=== PATIENT | female | born 1955 | race Caucasian/White ===

== ENCOUNTER → 2018-06-13 | Outpatient (CLI) | payer OTHER, SELFPAY ==
--- NOTE | 2018-06-13 | DI.MRI.S_ITS ---
PROCEDURE: MR CERVICAL SPINE WO CON INDICATIONS: Cervicalgia TECHNIQUE: Noncontrast sagittal T1 spin echo and T2 fast spin echo, sagittal STIR, foraminal oblique sagittal T2 fast spin echo, and axial gradient echo or T2 fast spin echo through the cervical spine. COMPARISON: [facility], MR, C-SPINE WITHOUT CONTRAST, 11/04/2010, 15:08. [facility], CR, CERVICAL SPINE 2 OR 3 VIEWS, 10/14/2009, 14:18. [facility], CR, CERVICAL SPINE 4 VIEWS, 10/13/2009, 13:30. [facility], MR, C-SPINE WITHOUT CONTRAST, 11/05/2015, 10:43. FINDINGS: Image quality: Excellent. Alignment and Curvature: There is loss of normal cervical lordosis. There is minimal retrolisthesis of C5 over C6 alignment. Bone Marrow: Marrow demonstrates normal overall signal. Spinal Cord: Visualized spinal cord has normal size and signal. No cerebellar tonsillar herniation. Paraspinous Soft Tissues: No paravertebral masses. Prevertebral soft tissues are normal in thickness. Enlarged thyroid gland. C2-C3: Preserved disc height and mild disc desiccation. There is broad posterior disc bulge. The central canal is mildly narrowed, but unchanged. No foraminal stenosis. C3-C4: Preserved disc height and mild disc desiccation. There is broad posterior disc bulge and mild uncovertebral hypertrophy. Mild right facet arthropathy. The central canal is mildly narrowed. Mild bilateral foraminal stenosis. No significant change from last exam. C4-C5: [id number]-nl-[id number] loss of disc height and disc desiccation. There is mild posterior disc bulge and mild uncovertebral hypertrophy. Mild to moderate bilateral facet arthropathy. The central canal is patent. No significant foraminal stenosis. C5-C6: Ulyc-hl-kjxhyzxl loss of disc height and disc desiccation. There is broad posterior disc bulge and uncovertebral hypertrophy. The central canal is patent. Mild left foraminal stenosis, unchanged. The right neuroforamen is patent. C6-C7: Mild loss of disc height and disc desiccation. There is broad posterior disc bulge and uncovertebral hypertrophy. The central canal is mildly narrowed, unchanged. No foraminal stenosis. C7-T1: Normal appearance. IMPRESSION: 1. Multilevel degenerative disc disease and facet arthropathy as described. 2. Mild central canal stenosis at C2-C3, C3-C4 and C6-C7. 3. Multilevel mild foraminal stenoeis as described. 4. Enlarged thyroid gland. Please correlate with thyroid function tests. If clinically indicated, thyroid ultrasound and helpful for followup. Dictated by: Mari Lugo M.D. on 06/13/2018 at 15:54 Approved by: Mari Lugo M.D. on 06/13/2018 at 16:04
== END ==
PROVIDERS: PCP Family Medicine Geriatric Medicine; Visit Provider Family Medicine Geriatric Medicine
DX: M50.31 Other cervical disc degeneration, high cervical region (principal); M48.02 Spinal stenosis, cervical region; M47.812 Spondylosis without myelopathy or radiculopathy, cervical region; E04.9 Nontoxic goiter, unspecified
CPT/HCPCS: 72141

== ENCOUNTER → 2020-01-09 11:30 | Outpatient (CLI) | payer MEDICARE, OTHER, SELFPAY ==
--- NOTE | 2020-01-09 11:33 | DI.RAD.S_ITS ---
PROCEDURE: XR CERVICAL SPINE 4V OR 5V INDICATIONS: neck pain with radiculopathy TECHNIQUE: 6 views of the cervical spine acquired. COMPARISON: None. FINDINGS: Bones: No fractures or dislocations to the T1 level. Straightening of the normal lordotic curvature. Multilevel degenerative endplate sclerosis and spurring. Diffuse facet arthropathy. Mild left and moderate narrowing of the C4-C5 and C5-C6 disc spaces. On the right, no definite bony foraminal stenosis. On the left, mild narrowing of the C4-C5, C5-C6 and C6-C7 neuroforamen Soft tissues: No prevertebral soft tissue swelling. IMPRESSION: Lower left cervical bony foraminal stenoses from C4-C7. Multilevel cervical spondylosis most pronounced at the C4-C5 C5-C6. Her graft diffuse facet arthropathy Straightening of the normal lordotic curvature. Dictated by: Dejuan Delatorre M.D. on 01/09/2020 at 16:56 Approved by: Dejuan Delatorre M.D. on 01/09/2020 at 16:59
== END ==
PROVIDERS: PCP Physician Assistant Medical; Referring Provider Physical Medicine & Rehabilitation; Visit Provider Physical Medicine & Rehabilitation
DX: M54.2 Cervicalgia (principal); M47.22 Other spondylosis with radiculopathy, cervical region; M48.02 Spinal stenosis, cervical region
CPT/HCPCS: 72050

== ENCOUNTER → 2020-07-14 11:17 | Outpatient (CLI) | payer MEDICARE, OTHER, SELFPAY ==
[2020-07-15 03:47] LABS: COVID19 Sendout Not Detected (Not Detect)
== END ==
PROVIDERS: PCP Physician Assistant Medical; Visit Provider Physician Assistant
DX: Z11.59 Encounter for screening for other viral diseases (principal)
CPT/HCPCS: 87635

== ENCOUNTER 2020-07-17 07:55 | Outpatient (CLI) | payer MEDICARE, OTHER, SELFPAY ==
[2020-07-17] VITALS (8 sets, daily range): BP systolic 122–144; BP diastolic 77–91; PULSE 67–83; RESP 8–16; TEMP 36.4; O2SAT 94–100
--- NOTE | 2020-07-17 08:01 | DI.RAD.S_ITS ---
PROCEDURE: PAIN C/T FACET INJ/BLK 1ST L INDICATIONS: SPONDYLOSIS COMPARISON: [facility], MR, MR CERVICAL SPINE WO CON, 06/13/2018, 10:45. FINDINGS: Fluoroscopic spot filming was performed to verify placement of spinal needles at the C4-C5, C5-C6 and C6-C7 level(s), as labeled on the films. Appropriate location(s) of the needle tip(s) was confirmed by injection of iodinated contrast. Dictated by: Dejuan Delatorre M.D. on 07/17/2020 at 10:48 Approved by: Dejuan Delatorre M.D. on 07/17/2020 at 10:50
[2020-07-17] MEDS: MIDAZOLAM 5 MG/5 ML VIAL IV (09:15)
[2020-07-17] MEDS: fentaNYL 100 MCG/2 ML INJ 50 MCG IV (09:15)
[2020-07-17] MEDS: DEXAMETHASONE 10 MG/ML VIAL 30 MG INJ (09:20)
[2020-07-17] MEDS: IOPAMIDOL 15 ML VIAL 3 ML INJ (09:20)
[2020-07-17] MEDS: BUPIVACAINE 0.5% (PF) VIAL 2 ML INJ (09:21)
--- NOTE | 2020-07-17 09:34 | P.PCN_ITS ---
Date/Time/Diagnoses Date of procedure: 07/17/20 Time of procedure: 09:34 Pre-procedure diagnosis: 1. FACET ARTHROPATHY 2. AXIAL NECK PAIN Post-procedure diagnosis: same Procedure Notes Procedure: 1. FLUOROSCOPICALLY GUIDED, CONTRAST-CONTROLLED RIGHT C4/5, C5/6 AND C6/7 FACET JOINT INJECTIONS WITH CONSCIOUS SEDATION. Indications: Elijah is referred by MING Leal for treatment of Axial Neck Pain Physician: Rigoberto Lott Total Fluoroscopy time (seconds): 22 Total sedation minutes: 22 Complications: none Procedure in detail & Post-procedure care: DESCRIPTION OF PROCEDURE Fluoroscopically guided, contrast-controlled right C4/5, C5/6 and C6/7 facet joint injections with conscious sedation. Following review of allergy and review of potential side effects and complications, including, but not necessarily limited to, infection, allergic reaction, local tissue breakdown, stroke, temporary or permanent nerve injury and paralysis, the patient indicated that the patient understood and agreed to p roceed. An informed consent document was signed by the patient, witnessed by a nurse, and placed in the patient's chart. Additionally, other treatment options including medications, modalities, and physical therapy were reviewed with the patient. After review of previous anaesthesic history and IV conscious sedation the patient was deemed safe to proceed with today?s procedure with IV conscious sedation as ASA class II designation. Safety time-out was performed to confirm patient ID, procedure to be performed and site of procedure. IV sedation was accomplished with a combination of 3mg of Versed and 50mcg of Fentanyl was administered by the RN after DO order, titrated to patient comfort during the course of the procedure while the patient remained responsive to all verbal commands In the prone position, following sterile prep and drape of the cervical spine region, the posterior aspect of the right C4/5, C5/6 and C6/7 facet joints were identified fluoroscopically. The skin was anesthetized via a 25-gauge 1.5-inch needle with 1% lidocaine solution into the corresponding facet joints. At this point, a 25-gauge 2.5-inch spinal needle was atraumatically introduced and advanced under fluoroscopic guidance into the corresponding facet joints. Following negative aspiration, injections of approximately 0.2-cc of Isovue 200 confirmed interarticular placement without vascular uptake. At this point, a total of 1cc including 0.5 c or 5 mg of dexamethasone combined with 0.5cc of 1% lidocaine solution was injected without complication into each of the corresponding facet joints. The procedure tolerated the procedure well without signs or symptoms of complications prior to transfer to the recovery area continued monitoring without incident. The patient was then transferred to the recovery area where they were observed for an appropriate period of time after the injection. The patient reported a VAS score of 7 prior to the procedure and a post- procedure VAS of 0. POST OP INSTRUCTIONS They were provided a Pain Log to continue to record their response to the target-specific procedure prior to their follow-up visit with their referring physician. Additionally, specific post-injection care instructions and a contact number to our office were provided if concerns arise regarding possible complications associated with the procedure are suspected.
== END 2020-07-17 10:05 | disposition home or self-care (01) ==
PROVIDERS: PCP Physician Assistant Medical; Referring Provider Physical Medicine & Rehabilitation; Visit Provider Physical Medicine & Rehabilitation
DX: M47.812 Spondylosis without myelopathy or radiculopathy, cervical region (principal); M54.2 Cervicalgia
CPT/HCPCS: 64490; 64491; 64492; 99152; J1100; J2250; J3010

== ENCOUNTER → 2020-09-13 14:52 | Outpatient (CLI) | payer MEDICARE, OTHER, SELFPAY ==
--- NOTE | 2020-09-13 14:54 | DI.MRI.S_ITS ---
PROCEDURE: MR CERVICAL SPINE WO CON INDICATIONS: cervical stenosis TECHNIQUE: Noncontrast sagittal T1 spin echo and T2 fast spin echo, sagittal STIR, foraminal oblique sagittal T2 fast spin echo, and axial gradient echo or T2 fast spin echo through the cervical spine. COMPARISON: [facility], CR, XR CERVICAL SPINE 4V OR 5V, 01/09/2020, 11:29. [facility], MR, C-SPINE WITHOUT CONTRAST, 11/05/2015, 10:43. [facility], MR, MR CERVICAL SPINE WO CON, 06/13/2018, 10:45. FINDINGS: Image quality: Excellent. Alignment and Curvature: There is reversal of the normal cervical lordosis, with the apex seen at the C5 level. There is minimal anterolisthesis at C4-C5. There is minimal retrolisthesis seen at C5-C6. Bone Marrow: Marrow demonstrates normal overall signal. Spinal Cord: Visualized spinal cord has normal size and signal. No cerebellar tonsillar herniation. Paraspinous Soft Tissues: No paravertebral masses. Prevertebral soft tissues are normal in thickness. C2-C3: The disc height is well-preserved. Loss of disc signal is seen at this level. A mild degree of generalized disc osteophyte complex is seen. There is a mild central disc protrusion seen. There is minimal right-sided and no significant left-sided neural foraminal narrowing seen. Minimal central canal narrowing is seen. When comparison is made with the prior examination, these findings are similar. C3-C4: Mild loss of disc height is seen. Loss of disc signal is seen. Moderate generalized disc osteophyte complex is seen. There is moderate right-sided and mild left-sided facet hypertrophy seen. There is moderate to severe right-sided and at least moderate left-sided neural foraminal narrowing seen. Mild to moderate central canal narrowing is seen, with minimal associated mass effect upon the ventral spinal cord. Mild progression compared to the prior. C4-C5: Moderate loss of disc height is seen. Loss of disc signal is seen. Mild to moderate disc osteophyte complex is seen. There is mild to moderate right-sided and moderate left-sided facet hypertrophy seen. There is mild right-sided and at least moderate left-sided neural foraminal narrowing seen. Mild central canal narrowing is seen. These imaging findings have progressed compared to the prior study. C5-C6: Moderate loss of disc height is seen. Loss of disc signal is seen. At least moderate disc osteophyte complex is seen, which is eccentric to the right, with a right lateral recess disc osteophyte protrusion. Moderate facet joint hypertrophy is seen. There is moderate to severe bilateral neural foraminal narrowing seen. Mild central canal narrowing is seen. These imaging findings have progressed compared to the prior study. C6-C7: Ohyz-bm-qjiaxgcf loss of disc height and disc signal can be seen. Mild to moderate disc osteophyte complex is seen. Moderate facet joint hypertrophy is seen. There is moderate to severe left-sided and at least moderate right-sided neural foraminal narrowing seen. Mild central canal narrowing is seen. These imaging findings have progressed compared to the prior study. C7-T1: The disc height is well-preserved. Loss of disc signal is seen at this level. A mild degree of generalized disc osteophyte complex is seen. Mild bilateral neural foraminal narrowing is seen. The central canal is widely patent. When comparison is made with the prior examination, these findings are similar. IMPRESSION: Multiple levels of cervical spine degenerative change are seen, which are overall most prominent at C5-C6. The degenerative changes have progressed at several levels compared to 2018. Dictated by: Abraham Martinez M.D. on 09/15/2020 at 10:49 Approved by: Abraham Martinez M.D. on 09/15/2020 at 11:01
== END ==
PROVIDERS: PCP Physician Assistant Medical; Referring Provider Physical Medicine & Rehabilitation; Visit Provider Physical Medicine & Rehabilitation
DX: M47.812 Spondylosis without myelopathy or radiculopathy, cervical region (principal); M48.02 Spinal stenosis, cervical region
CPT/HCPCS: 72141

== ENCOUNTER 2020-10-02 10:06 | Outpatient (CLI) | payer MEDICARE, OTHER, SELFPAY ==
[2020-10-02] VITALS (8 sets, daily range): BP systolic 142–173; BP diastolic 72–90; PULSE 78–93; RESP 11–16; TEMP 36.6; O2SAT 97–100
--- NOTE | 2020-10-02 10:09 | DI.RAD.S_ITS ---
PROCEDURE: PAIN C/T FACET INJ/BLK 1ST L INDICATIONS: SPINAL STENOSIS COMPARISON: [facility], MR, MR CERVICAL SPINE WO CON, 06/13/2018, 10:45. [facility], XA, PAIN C/T FACET INJ/BLK 1ST L, 07/17/2020, 9:27. [facility], CR, XR CERVICAL SPINE 4V OR 5V, 01/09/2020, 11:29. FINDINGS: Fluoroscopic spot filming was performed to verify placement of spinal needles at the C3-C4 and C4-C5 level(s), as labeled on the films. Appropriate location(s) of the needle tip(s) was confirmed by injection of iodinated contrast. IMPRESSION: Fluoroscopy for pain management. Dictated by: Mari Lugo M.D. on 10/02/2020 at 13:09 Approved by: Mari Lugo M.D. on 10/02/2020 at 13:12
[2020-10-02] MEDS: fentaNYL 100 MCG/2 ML INJ 50 MCG IV (12:10)
[2020-10-02] MEDS: MIDAZOLAM 5 MG/5 ML VIAL IV (12:15)
--- NOTE | 2020-10-02 12:30 | P.PCN_ITS ---
Date/Time/Diagnoses Date of procedure: 10/02/20 Time of procedure: 12:30 Pre-procedure diagnosis: 1. FACET ARTHROPATHY 2. AXIAL NECK PAIN Post-procedure diagnosis: same Procedure Notes Procedure: 1. FLUOROSCOPICALLY GUIDED, CONTRAST-CONTROLLED RIGHT C3/4, C4/5 FACET JOINT INJECTIONS WITH CONSCIOUS SEDATION. Indications: Elijah is referred by MING Leal for treatment of Axial Neck Pain Physician: Rigoberto Lott Total Fluoroscopy time (seconds): 10 Total sedation minutes: 15 Complications: none Procedure in detail & Post-procedure care: DESCRIPTION OF PROCEDURE Fluoroscopically guided, contrast-controlled right C3/4 and C4/5 facet joint injections with conscious sedation. Following review of allergy and review of potential side effects and complications, including, but not necessarily limited to, infection, allergic reaction, local tissue breakdown, stroke, temporary or permanent nerve injury and paralysis, the patient indicated that the patient understood and agreed to proceed. An informed consent document was signed by the patient, witnessed by a nurse, and placed in the patient's chart. Additionally, other treatment options including medications, modalities, and physical therapy were reviewed with the patient. After review of previous anaesthesic history and IV conscious sedation the patient was deemed safe to proceed with today?s procedure with IV conscious sedation as ASA class II designation. Safety time-out was performed to confirm patient ID, procedure to be performed and site of procedure. IV sedation was accomplished with a combination of 4mg of Versed and 50mcg of Fentanyl was administered by the RN after DO order, titrated to patient comfort during the course of the procedure while the patient remained responsive to all verbal commands In the prone position, following sterile prep and drape of the cervical spine region, the posterior aspect of the right C3/4 and C4/5 facet joints were identified fluoroscopically. The skin was anesthetized via a 25-gauge 1.5-inch needle with 1% lidocaine solution into the corresponding facet joints. At this point, a 25-gauge 2.5-inch spinal needle was atraumatically introduced and advanced under fluoroscopic guidance into the corresponding facet joints. Following negative aspiration, injections of approximately 0.2-cc of Isovue 200 confirmed interarticular placement without vascular uptake. At this point, a total of 1cc including 0.5 cc or 5mg of dexamethasone combined with 0.5cc of 1% lidocaine solution was injected without complication into each of the corresponding facet joints. The procedure tolerated the procedure well without signs or symptoms of complications prior to transfer to the recovery area continued monitoring without incident. The patient was then transferred to the recovery area where they were observed for an appropriate period of time after the injection. The patient reported a VAS score of 7 prior to the procedure and a post- procedure VAS of 0. POST OP INSTRUCTIONS They were provided a Pain Log to continue to record their response to the target-specific procedure prior to their follow-up visit with their referring physician. Additionally, specific post-injection care instructions and a contact number to our office were provided if concerns arise regarding possible complications associated with the procedure are suspected.
[2020-10-02] MEDS: BUPIVACAINE 0.5% (PF) VIAL 2 ML INJ (12:47)
[2020-10-02] MEDS: DEXAMETHASONE 10 MG/ML VIAL 30 MG INJ (12:48)
[2020-10-02] MEDS: IOPAMIDOL 15 ML VIAL 3 ML INJ (12:48)
== END 2020-10-02 12:45 | disposition home or self-care (01) ==
PROVIDERS: PCP Physician Assistant Medical; Referring Provider Physical Medicine & Rehabilitation; Visit Provider Physical Medicine & Rehabilitation
DX: M47.812 Spondylosis without myelopathy or radiculopathy, cervical region (principal); M54.2 Cervicalgia
CPT/HCPCS: 64490; 64491; 99152; J1100; J2250; J3010

== ENCOUNTER 2021-01-29 10:43 | Outpatient (CLI) | payer MEDICARE, OTHER, SELFPAY ==
[2021-01-29] VITALS (8 sets, daily range): BP systolic 131–157; BP diastolic 65–95; PULSE 70–85; RESP 10–19; TEMP 37.1; O2SAT 95–100
--- NOTE | 2021-01-29 10:45 | DI.RAD.S_ITS ---
PROCEDURE: PAIN C/T FACET INJ/BLK 1ST L INDICATIONS: SPINAL STENOSIS COMPARISON: [facility], XA, PAIN C/T FACET INJ/BLK 1ST L, 10/02/2020, 12:14. [facility], XA, PAIN C/T FACET INJ/BLK 1ST L, 07/17/2020, 9:27. FINDINGS: Fluoroscopic spot filming was performed to verify placement of spinal needles at the C3-4 and C4-5 right-sided level(s), as labeled on the films. Appropriate location(s) of the needle tip(s) was confirmed by injection of iodinated contrast. IMPRESSION: Successful 2 level facet joint injection needle tip localization. Dictated by: Anil Lyons M.D. on 01/29/2021 at 12:24 Approved by: Anil Lyons M.D. on 01/29/2021 at 12:24
[2021-01-29] MEDS: fentaNYL 100 MCG/2 ML INJ 50 MCG IV (11:21)
[2021-01-29] MEDS: MIDAZOLAM 5 MG/5 ML VIAL IV (11:21)
[2021-01-29] MEDS: DEXAMETHASONE 10 MG/ML VIAL 20 MG INJ (11:24)
[2021-01-29] MEDS: IOPAMIDOL 15 ML VIAL 3 ML INJ (11:24)
[2021-01-29] MEDS: BUPIVACAINE 0.5% (PF) VIAL 2 ML INJ (11:24)
--- NOTE | 2021-01-29 11:37 | P.PCN_ITS ---
Date/Time/Diagnoses Date of procedure: 01/29/21 Time of procedure: 11:37 Pre-procedure diagnosis: 1. FACET ARTHROPATHY 2. AXIAL NECK PAIN Post-procedure diagnosis: same Procedure Notes Procedure: 1. FLUOROSCOPICALLY GUIDED, CONTRAST-CONTROLLED RIGHT C3/4, C4/5 FACET JOINT INJECTIONS WITH CONSCIOUS SEDATION. Indications: Elijah is referred by MING Leal for treatment of Axial Neck Pain Physician: Rigoberto Lott Total Fluoroscopy time (seconds): 13 Total sedation minutes: 10 Complications: none Procedure in detail & Post-procedure care: DESCRIPTION OF PROCEDURE Fluoroscopically guided, contrast-controlled right C3/4, C4/5 facet joint injections with conscious sedation. Following review of allergy and review of potential side effects and complications, including, but not necessarily limited to, infection, allergic reaction, local tissue breakdown, stroke, temporary or permanent nerve injury and paralysis, the patient indicated that the patient understood and agreed to proceed. An informed consent document was signed by the patient, witnessed by a nurse, and placed in the patient's chart. Additionally, other treatment options including medications, modalities, and physical therapy were reviewed with the patient. After review of previous anaesthesic history and IV conscious sedation the patient was deemed safe to proceed with today?s procedure with IV conscious sedation as ASA class II designation. Safety time-out was performed to confirm patient ID, procedure to be performed and site of procedure. IV sedation was accomplished with a combination of 2mg of Versed and 50mcg of Fentanyl was administered by the RN after DO order, titrated to patient comfort during the course of the procedure while the patient remained responsive to all verbal commands In the prone position, following sterile prep and drape of the cervical spine region, the posterior aspect of the right C3/4, C4/5 facet joints were identified fluoroscopically. The skin was anesthetized via a 25-gauge 1.5-inch needle with 1% lidocaine solution into the corresponding facet joints. At this point, a 22-gauge 2.5-inch spinal needle was atraumatically introduced and advanced under fluoroscopic guidance into the corresponding facet joints. Following negative aspiration, injections of approximately 0.2-cc of Isovue 200 confirmed interarticular placement without vascular uptake. At this point, a total of 1 cc including 0.5 cc or 5 mg of dexamethasone combined with 0.5 cc of 1% lidocaine solution was injected without complication into each of the corresponding facet joints. The procedure tolerated the procedure well without signs or symptoms of complications prior to transfer to the recovery area continued monitoring without incident. The patient was then transferred to the recovery area where they were observed for an appropriate period of time after the injection. The patient reported a VAS score of 7 prior to the procedure and a post- procedure VAS of 2. POST OP INSTRUCTIONS They were provided a Pain Log to continue to record their response to the target-specific procedure prior to their follow-up visit with their referring physician. Additionally, specific post-injection care instructions and a contact number to our office were provided if concerns arise regarding possible complications associated with the procedure are suspected.
== END 2021-01-29 11:50 | disposition home or self-care (01) ==
PROVIDERS: PCP Physician Assistant Medical; Referring Provider Physical Medicine & Rehabilitation; Visit Provider Physical Medicine & Rehabilitation
DX: M47.812 Spondylosis without myelopathy or radiculopathy, cervical region (principal); M54.2 Cervicalgia
CPT/HCPCS: 64490; 64491; 99152; J1100; J2250; J3010

== ENCOUNTER 2021-04-23 09:32 | Outpatient (CLI) | payer MEDICARE, OTHER, SELFPAY ==
[2021-04-23] VITALS (10 sets, daily range): BP systolic 126–158; BP diastolic 76–103; PULSE 67–94; RESP 12–25; TEMP 36.8; O2SAT 97–100
--- NOTE | 2021-04-23 09:34 | DI.RAD.S_ITS ---
PROCEDURE: PAIN C/T INTERLAMINAR INJECT INDICATIONS: SPINAL STENOSIS COMPARISON: None. FINDINGS: Fluoroscopic spot filming was performed to verify placement of spinal needles at the C6-C7 level(s), as labeled on the films. Appropriate location(s) of the needle tip(s) was confirmed by injection of iodinated contrast. Dictated by: Dejuan Delatorre M.D. on 04/23/2021 at 11:39 Approved by: Dejuan Delatorre M.D. on 04/23/2021 at 11:39
[2021-04-23] MEDS: fentaNYL 100 MCG/2 ML INJ 50 MCG IV (10:12)
[2021-04-23] MEDS: BUPIVACAINE 0.25% (PF) VIAL 2 ML INJ (10:18)
[2021-04-23] MEDS: IOPAMIDOL 15 ML VIAL 3 ML INJ (10:18)
[2021-04-23] MEDS: DEXAMETHASONE 10 MG/ML VIAL 30 MG INJ (10:18)
[2021-04-23] MEDS: MIDAZOLAM 5 MG/5 ML VIAL IV (10:19)
--- NOTE | 2021-04-23 10:32 | P.PCN_ITS ---
Date/Time/Diagnoses Date of procedure: 04/23/21 Time of procedure: 10:32 Pre-procedure diagnosis: 1. CERVICAL STENOSIS, 2. CERVICAL HNP WITH UPPER EXTREMITY RADICULAR FEATURES Post-procedure diagnosis: same Procedure Notes Procedure: 1. FLUORSCOPICALLY GUIDED CONTRAST CONTROLLED INTERLAMINAR EPIDURAL STEROID INJECTION - C6/7 TL NERY Indications: Elijah is referred by MING Leal for treatment of Cervical HNP with Upper Extremity Paresthesias. Physician: Rigoberto Lott Total Fluoroscopy time (seconds): 26 Total sedation minutes: 16 Complications: none Procedure in detail & Post-procedure care: FINDINGS Cervical Stenosis due to disc deterioration and nerve root irritation and nerve root irritation DESCRIPTION OF PROCEDURE Fluoroscopically guided, contrast-controlled C6/7 translaminar epidural steroid injection with conscious sedation. Following review of allergy and review of potential side effects and complications, including, but not necessarily limited to, infection, allergic reaction, local tissue breakdown, temporary as well as permanent nerve injury, stroke, paralysis, and possible , the patient indicated that patient understood and agreed to proceed. An informed consent document was signed by the patient, witnessed by a nurse, and placed in the patient's chart. Additionally, other treatment options including modalities, medications, and physical therapy were reviewed with the patient. After review of previous anaesthesic history and IV conscious sedation the patient was deemed safe to proceed with today?s procedure with IV conscious sed ation as ASA class II designation. Safety time-out was performed to confirm patient ID, procedure to be performed and site of procedure. IV sedation was accomplished with a combination of 4mg of Versed and 50mcg of Fentanyl administered by the RN after DO order, titrated to patient comfort during the course of the procedure while the patient remained responsive to all verbal commands. In the prone position, following sterile prep and drape of the cervical region, the C6/7 translaminar space was identified fluoroscopically. The skin was anesthetized via a 25-gauge 1.5-inch needle with 1% lidocaine solution. At this point, a 25-gauge, 2.5-inch short bevel spinal needle was atraumatically introduced and advanced under fluoroscopic guidance into epidural space at the C6/7 translaminar space. Depth was confirmed on lateral view. Radiological data, including multiple fluoroscopic views of the cervical spine, reveal a spinal needle at the C6/7 translaminar space. Lateral views then show placement of the needle in the epidural space. Subsequent views show contrast material flowing superiorly and inferiorly in the epidural space. DSA fluoroscopy with live contrast injection, once again, confirmed no vascular or intrathecal uptake. At this point, using loss of resistance technique with saline and air, the epidural space was entered. Following negative aspiration, injection of approximately 1.5 cc of Isovue-200 with live fluoroscopy in the AP view confirmed epidural flow in the epidural space without vascular or intrathecal uptake observed. Subsequently, a test dose of 1 cc of 1% lidocaine solution was injected and patient was observed for two minutes without signs or symptoms of complications, including abdominal pain, shortness of breath, bilateral upper or lower extremity weakness, nausea and vomiting, prior to steroid injection. At this point, 3cc or 30mg of dexamethasone was then injected without incident. The patient tolerated the procedure well without signs or symptoms of complications prior to being transferred to the recovery area for further monitoring, The patient was then transferred to the recovery area where they were observed for an appropriate period of time after the injection. The patient reported a VAS score of 6 prior to the procedure and a post-procedure VAS of 0. POST OP INSTRUCTIONS The patient was provided a Pain Log to continue to record their response to the target-specific procedure prior to follow-up visit with the referring provider. Additionally, specific post-injection care instructions and a contact number to our office were provided if concerns arise regarding possible complications associated with the procedure are suspected.
== END 2021-04-23 10:52 | disposition home or self-care (01) ==
PROVIDERS: PCP Physician Assistant Medical; Referring Provider Physical Medicine & Rehabilitation; Visit Provider Physical Medicine & Rehabilitation
DX: M48.02 Spinal stenosis, cervical region (principal); M50.123 Cervical disc disorder at C6-C7 level with radiculopathy
CPT/HCPCS: 62321; 99152; J1100; J2250; J3010

== ENCOUNTER 2022-02-04 08:47 | Outpatient (CLI) | payer MEDICARE, OTHER, SELFPAY ==
[2022-02-04] VITALS (9 sets, daily range): BP systolic 125–168; BP diastolic 58–89; PULSE 72–92; RESP 12–20; TEMP 36.8; O2SAT 95–100
--- NOTE | 2022-02-04 08:50 | DI.RAD.S_ITS ---
PROCEDURE: PAIN C/T INTERLAMINAR INJECT INDICATIONS: Cervical Radiculopathy COMPARISON: None. FINDINGS: Fluoroscopic spot filming was performed to verify placement of spinal needles at the C6-C7 interlaminar space level(s), as labeled on the films. Appropriate location(s) of the needle tip(s) was confirmed by injection of iodinated contrast. IMPRESSION: Access needle position in the C6-C7 interlaminar space for translaminar epidural steroid injection Dictated by: Tamika Osborn MD, PhD on 02/04/2022 at 11:21 Approved by: Tamika Osborn MD, PhD on 02/04/2022 at 11:22
--- NOTE | 2022-02-04 08:50 | DI.RAD.S_ITS ---
PROCEDURE: XR LUMBAR SPINE MIN 4V INDICATIONS: post lami syndrome TECHNIQUE: 5 views of the lumbar spine were acquired, including bilateral oblique views. COMPARISON: None. FINDINGS: Bones: 5 nonrib-bearing vertebrae are present. Non-rudimentary S1-S2 disc noted. Postsurgical changes compatible with left L5-S1 laminotomy. There is normal bony alignment. No vertebral body compression fractures. No suspicious bony lesions. Moderate L2-L3 and L5-S1 degenerative disc disease. Mild to moderate L3-L4 degenerative disc disease. Mild L1-L2 and L4-L5 degenerative disc disease. Moderate L2-L3, L3-L4, L4-L5 and L5-S1 facet arthropathy. Soft tissues: Overlying bowel gas pattern is normal. No suspicious soft tissue calcifications. Oblique images: No pars defects. IMPRESSION: 1. Multilevel degenerative disc disease. 2. Multilevel facet arthropathy. 3. No fracture. No acute osseous lesion. If symptoms and/or clinical suspicion for pathology persists, evaluation with MRI should be considered for further assessment. Dictated by: Tamika Osborn MD, PhD on 02/04/2022 at 10:49 Approved by: Tamika Osborn MD, PhD on 02/04/2022 at 10:51
[2022-02-04] MEDS: MIDAZOLAM 2 MG/2 ML VIAL 5 MG IV (09:25)
[2022-02-04] MEDS: fentaNYL 100 MCG/2 ML INJ (09:25)
[2022-02-04] MEDS: BUPIVACAINE 0.25% (PF) VIAL 2 ML INJ (09:27)
[2022-02-04] MEDS: IOPAMIDOL 15 ML VIAL 3 ML INJ (09:28)
[2022-02-04] MEDS: DEXAMETHASONE 10 MG/ML VIAL 30 MG INJ (09:28)
--- NOTE | 2022-02-04 09:45 | P.PCN_ITS ---
Date/Time/Diagnoses Date of procedure: 02/04/22 Time of procedure: 09:45 Pre-procedure diagnosis: 1. CERVICAL STENOSIS, 2. CERVICAL HNP WITH UPPER EXTREMITY RADICULAR FEATURES Post-procedure diagnosis: same Procedure Notes Procedure: 1. FLUORSCOPICALLY GUIDED CONTRAST CONTROLLED INTERLAMINAR EPIDURAL STEROID INJECTION - C6/7 TL NERY Indications: Elijah is referred by MING Leal for treatment of Cervical HNP with Upper Extremity Paresthesias. Physician: Rigoberto Lott Total Fluoroscopy time (seconds): 40 Total sedation minutes: 17 Complications: none Procedure in detail & Post-procedure care: FINDINGS Cervical Stenosis due to disc deterioration and nerve root irritation and nerve root irritation DESCRIPTION OF PROCEDURE Fluoroscopically guided, contrast-controlled C6/7 translaminar epidural steroid injection with conscious sedation. Following review of allergy and review of potential side effects and complications, including, but not necessarily limited to, infection, allergic reaction, local tissue breakdown, temporary as well as permanent nerve injury, stroke, paralysis, and possible , the patient indicated that patient understood and agreed to proceed. An informed consent document was signed by the patient, witnessed by a nurse, and placed in the patient's chart. Additionally, other treatment options including modalities, medications, and physical therapy were reviewed with the patient. After review of previous anaesthesic history and IV conscious sedation the patient was deemed safe to proceed with today?s procedure with IV conscious se dation as ASA class II designation. Safety time-out was performed to confirm patient ID, procedure to be performed and site of procedure. IV sedation was accomplished with a combination of 2mg of Versed and 100mcg of Fentanyl administered by the RN after DO order, titrated to patient comfort during the course of the procedure while the patient remained responsive to all verbal commands. In the prone position, following sterile prep and drape of the cervical region, the C6/7 translaminar space was identified fluoroscopically. The skin was anesthetized via a 25-gauge 1.5-inch needle with 1% lidocaine solution. At this point, a 25-gauge, 2.5-inch short bevel spinal needle was atraumatically introduced and advanced under fluoroscopic guidance into epidural space at the C6/7 translaminar space. Depth was confirmed on lateral view. Radiological data, including multiple fluoroscopic views of the cervical spine, reveal a spinal needle at the C6/7 translaminar space. Lateral views then show placement of the needle in the epidural space. Subsequent views show contrast material flowing superiorly and inferiorly in the epidural space. DSA fluoroscopy with live contrast injection, once again, confirmed no vascular or intrathecal uptake. At this point, using loss of resistance technique with saline and air, the epidural space was entered. Following negative aspiration, injection of approximately 1.5 cc of Isovue-200 with live fluoroscopy in the AP view confirmed epidural flow in the epidural space without vascular or intrathecal uptake observed. Subsequently, a test dose of 1 cc of 1% lidocaine solution was injected and patient was observed for two minutes without signs or symptoms of complications, including abdominal pain, shortness of breath, bilateral upper or lower extremity weakness, nausea and vomiting, prior to steroid injection. At this point, 3cc or 30mg of dexamethasone was then injected without incident. The patient tolerated the procedure well without signs or symptoms of complications prior to being transferred to the recovery area for further monitoring, The patient was then transferred to the recovery area where they were observed for an appropriate period of time after the injection. The patient reported a VAS score of 6 prior to the procedure and a post-procedure VAS of 0. POST OP INSTRUCTIONS The patient was provided a Pain Log to continue to record their response to the target-specific procedure prior to follow-up visit with the referring provider. Additionally, specific post-injection care instructions and a contact number to our office were provided if concerns arise regarding possible complications associated with the procedure are suspected.
== END 2022-02-04 10:06 | disposition home or self-care (01) ==
LOC: RAD 08:49
PROVIDERS: PCP Physician Assistant Medical; Referring Provider Physical Medicine & Rehabilitation; Visit Provider Physical Medicine & Rehabilitation
DX: M48.02 Spinal stenosis, cervical region (principal); M50.123 Cervical disc disorder at C6-C7 level with radiculopathy
CPT/HCPCS: 62321; 72110; 99152; J1100; J2250; J3010

== ENCOUNTER 2022-09-16 09:14 | Outpatient (CLI) | payer MEDICARE, OTHER, SELFPAY ==
[2022-09-16] VITALS (9 sets, daily range): BP systolic 136–169; BP diastolic 72–90; PULSE 73–94; RESP 12–20; TEMP 36.2; O2SAT 97–99
--- NOTE | 2022-09-16 09:16 | DI.RAD.S_ITS ---
PROCEDURE: PAIN C/T INTERLAMINAR INJECT INDICATIONS: SPINAL STENOSIS COMPARISON: [facility], , PAIN C/T INTERLAMINAR INJECT, 02/04/2022, 10:28. FINDINGS: Fluoroscopic spot filming was performed to verify placement of spinal needles at the overlying C6-7 level(s), as labeled on the films. Appropriate location(s) of the needle tip(s) was confirmed by injection of iodinated contrast. IMPRESSION: Needle placement as above. Dictated by: Priscila Campbell M.D. on 09/16/2022 at 15:04 Approved by: Priscila Campbell M.D. on 09/16/2022 at 15:04
[2022-09-16] MEDS: MIDAZOLAM 2 MG/2 ML VIAL 4 MG IV (10:00)
[2022-09-16] MEDS: IOPAMIDOL 15 ML VIAL 3 ML INJ (10:01)
[2022-09-16] MEDS: DEXAMETHASONE 10 MG/ML VIAL 30 MG INJ (10:02)
[2022-09-16] MEDS: BUPIVACAINE 0.25% (PF) VIAL 2 ML INJ (10:02)
--- NOTE | 2022-09-16 10:15 | P.PCN_ITS ---
Date/Time/Diagnoses Date of procedure: 09/16/22 Time of procedure: 10:15 Pre-procedure diagnosis: 1. CERVICAL STENOSIS, 2. CERVICAL HNP WITH UPPER EXTREMITY RADICULAR FEATURES Post-procedure diagnosis: same Procedure Notes Procedure: 1. FLUORSCOPICALLY GUIDED CONTRAST CONTROLLED INTERLAMINAR EPIDURAL STEROID INJECTION - C6/7 TL NERY Indications: Elijah is referred by MING Leal for treatment of Cervical HNP with Upper Extremity Paresthesias. Physician: Rigoberto Lott Total Fluoroscopy time (seconds): 28 Total sedation minutes: 15 Complications: none Procedure in detail & Post-procedure care: FINDINGS Cervical Stenosis due to disc deterioration and nerve root irritation and nerve root irritation DESCRIPTION OF PROCEDURE Fluoroscopically guided, contrast-controlled C6/7 translaminar epidural steroid injection with conscious sedation. Following review of allergy and review of potential side effects and complications, including, but not necessarily limited to, infection, allergic reaction, local tissue breakdown, temporary as well as permanent nerve injury, stroke, paralysis, and possible , the patient indicated that patient understood and agreed to proceed. An informed consent document was signed by the patient, witnessed by a nurse, and placed in the patient's chart. Additionally, other treatment options including modalities, medications, and physical therapy were reviewed with the patient. After review of previous anaesthesic history and IV conscious sedation the patient was deemed safe to proceed with today?s procedure with IV conscious se dation as ASA class II designation. Safety time-out was performed to confirm patient ID, procedure to be performed and site of procedure. IV sedation was accomplished with a combination of 4mg of Versed administered by the RN after DO order, titrated to patient comfort during the course of the procedure while the patient remained responsive to all verbal commands. In the prone position, following sterile prep and drape of the cervical region, the C6/7 translaminar space was identified fluoroscopically. The skin was anesthetized via a 25-gauge 1.5-inch needle with 1% lidocaine solution. At this point, a 25-gauge, 2.5-inch short bevel spinal needle was atraumatically introduced and advanced under fluoroscopic guidance into epidural space at the C6/7 translaminar space. Depth was confirmed on lateral view. Radiological data, including multiple fluoroscopic views of the cervical spine, reveal a spinal needle at the C6/7 translaminar space. Lateral views then show placement of the needle in the epidural space. Subsequent views show contrast material flowing superiorly and inferiorly in the epidural space. DSA fluoroscopy with live contrast injection, once again, confirmed no vascular or intrathecal uptake. At this point, using loss of resistance technique with saline and air, the epidural space was entered. Following negative aspiration, injection of approximately 1.5 cc of Isovue-200 with live fluoroscopy in the AP view confirmed epidural flow in the epidural space without vascular or intrathecal uptake observed. Subsequently, a test dose of 1 cc of 1% lidocaine solution was injected and patient was observed for two minutes without signs or symptoms of complications, including abdominal pain, shortness of breath, bilateral upper or lower extremity weakness, nausea and vomiting, prior to steroid injection. At this point, 3cc or 30mg of dexamethasone was then injected without incident. The patient tolerated the procedure well without signs or symptoms of c omplications prior to being transferred to the recovery area for further monitoring, The patient was then transferred to the recovery area where they were observed for an appropriate period of time after the injection. The patient reported a VAS score of 6 prior to the procedure and a post-procedure VAS of 0. POST OP INSTRUCTIONS The patient was provided a Pain Log to continue to record their response to the target-specific procedure prior to follow-up visit with the referring provider. Additionally, specific post-injection care instructions and a contact number to our office were provided if concerns arise regarding possible complications associated with the procedure are suspected.
== END 2022-09-16 10:35 | disposition home or self-care (01) ==
LOC: RAD 09:15
PROVIDERS: PCP Physician Assistant Medical; Referring Provider Physical Medicine & Rehabilitation; Visit Provider Physical Medicine & Rehabilitation
DX: M48.02 Spinal stenosis, cervical region (principal); M50.123 Cervical disc disorder at C6-C7 level with radiculopathy
CPT/HCPCS: 62321; 99152; J1100; J2250; J3490

== ENCOUNTER → 2022-12-22 09:50 | Outpatient (CLI) | payer MEDICARE, OTHER, SELFPAY ==
--- NOTE | 2022-12-22 09:51 | DI.RAD.S_ITS ---
PROCEDURE: XR CERVICAL SPINE 4V OR 5V INDICATIONS: neck pain TECHNIQUE: 5 views of the cervical spine acquired. COMPARISON: [facility], CR, XR CERVICAL SPINE 4V OR 5V, 01/09/2020, 11:29. FINDINGS: Bones: No fractures or dislocations to the T1 level. Oblique images demonstrate a degree of left bony foraminal narrowing C4-C5, C5-C6, and C6-C7. There is very mild right bony foraminal narrowing at C3-C4 and C4-C5. Soft tissues: No prevertebral soft tissue swelling. IMPRESSION: Cervical spondylosis with multilevel foraminal narrowing as described above. Dictated by: Orville Hatch M.D. on 12/22/2022 at 10:20 Approved by: Orville Hatch M.D. on 12/22/2022 at 10:22
== END ==
PROVIDERS: PCP Physician Assistant Medical; Referring Provider Physical Medicine & Rehabilitation; Visit Provider Physical Medicine & Rehabilitation
DX: M47.22 Other spondylosis with radiculopathy, cervical region (principal); M50.10 Cervical disc disorder with radiculopathy, unspecified cervical region; M48.02 Spinal stenosis, cervical region
CPT/HCPCS: 72050

== ENCOUNTER → 2022-12-22 15:27 | Outpatient (CLI) | payer MEDICARE, OTHER, SELFPAY ==
--- NOTE | 2022-12-22 15:30 | DI.MRI.S_ITS ---
PROCEDURE: MR LUMBAR SPINE WO CON INDICATIONS: post lami syndrome TECHNIQUE: Noncontrast sagittal T1 spin echo and T2 fast echo, sagittal STIR, and T2 fast spin echo through the lumbar spine. In cases with scoliosis, additional coronal T2 fast spin echo may be performed. COMPARISON: [facility], MR, L-SPINE WITHOUT CONTRAST, 10/14/2014, 12:57. [facility], CR, XR LUMBAR SPINE MIN 4V, 02/04/2022, 8:45. [facility], MR, L-SPINE WITHOUT CONTRAST, 04/07/2011, 10:30. FINDINGS: Image quality: Excellent. Alignment and Curvature: There is minimal retrolisthesis seen at the L2-L3 level. Bone Marrow: Marrow is of normal overall signal. No acute vertebral body compression fractures. Spinal Cord: Conus medullaris terminates at the L1 level. Visualized cord demonstrates normal signal and size. Paraspinous Soft Tissues: No paravertebral masses. Postoperative change is seen, with susceptibility artifact seen posteriorly. Bone grafting material is noted. This patient has transitional lumbar anatomy. For the purposes of this examination, the level with the lowest well visualized disc space is considered to be S1-S2. This numbering scheme is chosen to remain consistent with the prior MRI report. T12-L1: Normal appearance. L1-L2: No significant abnormality is seen. L2-L3: At least moderate loss of disc height and disc signal can be seen. Reactive marrow endplate changes are seen which are hypointense on T1-weighted imaging and hyperintense on T2 weighted imaging, which is most consistent with edema (Modic type I changes). Mild to moderate disc bulge is seen at this level. There is a superimposed central disc protrusion. Moderate bilateral neural foraminal narrowing is seen. Mild central canal narrowing is seen. These imaging findings have progressed compared to the prior study. L3-L4: Moderate loss of disc height is seen. Loss of disc signal is seen. Mild to moderate disc bulge is seen. At least moderate facet hypertrophy can be seen. Moderate bilateral neural foraminal narrowing is seen. Mild to moderate central canal narrowing is seen. There is slight progression of degenerative change compared to 2014. L4-L5: The disc height and disk signal are relatively well-preserved. Mild to moderate disc bulge is seen. At least moderate facet hypertrophy can be seen. Moderate bilateral neural foraminal narrowing is seen. Mild central canal narrowing is seen. The degree of left-sided neural foraminal narrowing appears improved compared to 2014. The degree of central canal narrowing is progressed compared to prior. L5-S1: No significant disc bulge is seen. No significant neural foraminal or central canal narrowing can be seen. S1-S2: A transitional, rudimentary disc can be seen. IMPRESSION: Degenerative changes are seen, which are progressed at several levels compared to 2014. At the L4-L5 level, there is improved left-sided neural foraminal narrowing compared to 2014. Postoperative changes are seen posteriorly. Transitional lumbar anatomy, with a transitional S1-S2 disc noted. Dictated by: Abraham Martinez M.D. on 12/22/2022 at 15:39 Approved by: Abraham Martinez M.D. on 12/22/2022 at 15:45
== END ==
PROVIDERS: PCP Physician Assistant Medical; Referring Provider Physical Medicine & Rehabilitation; Visit Provider Physical Medicine & Rehabilitation
DX: M96.1 Postlaminectomy syndrome, not elsewhere classified (principal); M47.816 Spondylosis without myelopathy or radiculopathy, lumbar region; M48.061 Spinal stenosis, lumbar region without neurogenic claudication; M50.10 Cervical disc disorder with radiculopathy, unspecified cervical region; M47.22 Other spondylosis with radiculopathy, cervical region; M48.02 Spinal stenosis, cervical region; M54.81 Occipital neuralgia
CPT/HCPCS: 72050; 72148; 99214

== ENCOUNTER 2022-12-30 08:35 | Outpatient (CLI) | payer MEDICARE, OTHER, SELFPAY ==
[2022-12-30] VITALS (9 sets, daily range): BP systolic 130–170; BP diastolic 62–98; PULSE 73–84; RESP 12–20; TEMP 36.9; O2SAT 97–100
--- NOTE | 2022-12-30 08:36 | DI.RAD.S_ITS ---
PROCEDURE: PAIN L INTERLAMINAR/CAUDAL INJ INDICATIONS: BACK PAIN COMPARISON: [facility], MR, MR LUMBAR SPINE WO CON, 12/22/2022, 15:46. [facility], XA, PAIN C/T INTERLAMINAR INJECT, 09/16/2022, 10:01. FINDINGS: A caudally placed catheter is seen within the sacral canal. The position of the tip of the catheter was confirmed with injection of a small amount of iodinated contrast. IMPRESSION: Intraprocedural examination within normal limits. Dictated by: Abraham Martinez M.D. on 12/30/2022 at 11:12 Approved by: Abraham Martinez M.D. on 12/30/2022 at 11:13
[2022-12-30] MEDS: MIDAZOLAM 2 MG/2 ML VIAL IV (09:24)
[2022-12-30] MEDS: BETAMETHASONE 30 MG/5 ML MDV 12 MG INJ (09:30)
[2022-12-30] MEDS: IOPAMIDOL 15 ML VIAL 3 ML INJ (09:30)
[2022-12-30] MEDS: DEXAMETHASONE 10 MG/ML VIAL 20 MG INJ (09:30)
[2022-12-30] MEDS: BUPIVACAINE 0.25% (PF) VIAL 2 ML INJ (09:31)
--- NOTE | 2022-12-30 09:41 | PM.PROC.IR.1 ---
Date/Time/Diagnoses Date of procedure: 12/30/22 Time of procedure: 09:41 Pre-procedure diagnosis: 1. MULTILEVEL SPINAL STENOSIS 2. POST FUSION SYNDROME Post-procedure diagnosis: same Procedure Notes Procedure: 1. FLUOROSCOPICALLY GUIDED CONTRAST CONTROLLED CAUDAL EPIDURAL STEROID INJECTION, Indications: Elijah is referred by MING Leal for treatment of Multilevel Stenosis Physician: Rigoberto Lott Total Fluoroscopy time (seconds): 12 Total sedation minutes: 13 Complications: none Procedure in detail & Post-procedure care: FINDINGS Multilevel Stenosis S/p Lami/Fusion Syndrome DESCRIPTION OF PROCEDURE Fluoroscopically guided, contrast controlled caudal epidural steroid injection with Conscious Sedation Following review of allergy and review of potential side effects and complications, including but not necessarily limited to infection, allergic reaction, local tissue breakdown, temporary or permanent nerve injury, stroke, paralysis, and possible , the patient indicated that they understood and agreed to proceed. An informed consent document was signed by the patient, witnessed by a nurse, and placed in the patient's chart. Additionally, other treatment options including medications, modalities, and physical therapy were reviewed with the patient. After review of previous anaesthesic history and IV conscious sedation the patient was deemed safe to proceed with today?s procedure with IV conscious sedation as ASA class II designation. Safety time-out was performed to confirm patient ID, procedure to be performed and site of procedure. IV sedation was accomplished with a combination of 2mg of Versed administered by the RN after DO order, titrated to patient comfort during the course of the procedure while the patient remained responsive to all verbal commands In the prone position, following sterile prep and drape of the lumbar region, the sacral hiatus was identified fluoroscopically. The skin was anesthetized via a 25-gauge, 1.5-inch needle with approximately 2cc of 1% lidocaine solution. At this point, a 25-gauge, 3inch needle was atraumatically introduced and advanced under fluoroscopic guidance to the corresponding sacral hiatus and entering the sacral canal. Following negative aspiration, injection of approximately 0.3cc of Isovue 300 confirmed interarticular placement without vascular uptake. Radiological data, including multiple fluoroscopic views of the lumbosacral spine, reveal a spinal needle in the sacral canal through the sacral hiatus. Subsequent views show flow of contrast material superiorly and inferiorly in the sacral canal without vascular or intrathecal uptake. At this point, a total of 6cc including 3cc or 18mg of betamethasone and 3cc of 1% lidocaine solution was injected without complication. The patient tolerated the procedure well without signs or symptoms of complications prior to transfer to the recovery area continued monitoring without incident. The patient was then transferred to the recovery area where they were observed for an appropriate period of time after the injection. The patient reported a VAS score of 10 prior to the procedure and a post-procedure VAS of 2. POST OP INSTRUCTIONS The patient was provided a Pain Log to continue to record their response to the target-specific procedure prior to their follow-up visit with the referring physician. Additionally, specific post-injection care instructions and a contact number to our office were provided if concerns arise regarding possible complications associated with the procedure are suspected.
== END 2022-12-30 10:00 | disposition home or self-care (01) ==
PROVIDERS: PCP Physician Assistant Medical; Referring Provider Physical Medicine & Rehabilitation; Visit Provider Physical Medicine & Rehabilitation
DX: M96.1 Postlaminectomy syndrome, not elsewhere classified (principal); M48.061 Spinal stenosis, lumbar region without neurogenic claudication
CPT/HCPCS: 62323; 99152; J0702; J1100; J2250; J3490

== ENCOUNTER 2023-04-07 08:36 | Outpatient (CLI) | payer MEDICARE, OTHER, SELFPAY ==
[2023-04-07] VITALS (8 sets, daily range): BP systolic 143–182; BP diastolic 64–87; PULSE 67–85; RESP 12–20; TEMP 36.1; O2SAT 98–100
--- NOTE | 2023-04-07 08:38 | DI.RAD.S_ITS ---
PROCEDURE: PAIN C/T INTERLAMINAR INJECT INDICATIONS: SPINAL STENOSIS COMPARISON: [facility], , PAIN C/T INTERLAMINAR INJECT, 09/16/2022, 10:01. FINDINGS: Fluoroscopic spot filming was performed to verify placement of a spinal needle at the C6-C7 level, as labeled on the films. Appropriate location of the needle tip was confirmed by injection of iodinated contrast. IMPRESSION: No significant intraprocedural abnormality. Dictated by: Abraham Martinez M.D. on 04/07/2023 at 11:38 Approved by: Abraham Martinez M.D. on 04/07/2023 at 11:38
[2023-04-07] MEDS: MIDAZOLAM 2 MG/2 ML VIAL IV (09:45)
[2023-04-07] MEDS: DEXAMETHASONE 10 MG/ML VIAL 30 MG INJ (09:52)
[2023-04-07] MEDS: IOPAMIDOL 15 ML VIAL 3 ML INJ (09:52)
[2023-04-07] MEDS: BUPIVACAINE 0.25% (PF) VIAL 2 ML INJ (09:53)
--- NOTE | 2023-04-07 10:07 | P.PCN_ITS ---
Date/Time/Diagnoses Date of procedure: 04/07/23 Time of procedure: 10:07 Pre-procedure diagnosis: 1. CERVICAL STENOSIS, 2. CERVICAL HNP WITH UPPER EXTREMITY RADICULAR FEATURES Post-procedure diagnosis: same Procedure Notes Procedure: 1. FLUORSCOPICALLY GUIDED CONTRAST CONTROLLED INTERLAMINAR EPIDURAL STEROID INJECTION - C6/7 TL NERY Indications: Elijah is referred by MING Leal for treatment of Cervical HNP with Upper Extremity Paresthesias. Physician: Rigoberto Lott Total Fluoroscopy time (seconds): 26 Total sedation minutes: 15 Complications: none Procedure in detail & Post-procedure care: FINDINGS Cervical Stenosis due to disc deterioration and nerve root irritation and nerve root irritation DESCRIPTION OF PROCEDURE Fluoroscopically guided, contrast-controlled C6/7 translaminar epidural steroid injection with conscious sedation. Following review of allergy and review of potential side effects and complications, including, but not necessarily limited to, infection, allergic reaction, local tissue breakdown, temporary as well as permanent nerve injury, stroke, paralysis, and possible , the patient indicated that patient understood and agreed to proceed. An informed consent document was signed by the patient, witnessed by a nurse, and placed in the patient's chart. Additionally, other treatment options including modalities, medications, and physical therapy were reviewed with the patient. After review of previous anaesthesic history and IV conscious sedation the patient was deemed safe to proceed with today?s procedure with IV conscious se dation as ASA class II designation. Safety time-out was performed to confirm patient ID, procedure to be performed and site of procedure. IV sedation was accomplished with a combination of 2mg of Versed administered by the RN after DO order, titrated to patient comfort during the course of the procedure while the patient remained responsive to all verbal commands. In the prone position, following sterile prep and drape of the cervical region, the C6/7 translaminar space was identified fluoroscopically. The skin was anesthetized via a 25-gauge 1.5-inch needle with 1% lidocaine solution. At this point, a 25-gauge, 2.5-inch short bevel spinal needle was atraumatically introduced and advanced under fluoroscopic guidance into epidural space at the C6/7 translaminar space. Depth was confirmed on lateral view. Radiological data, including multiple fluoroscopic views of the cervical spine, reveal a spinal needle at the C6/7 translaminar space. Lateral views then show placement of the needle in the epidural space. Subsequent views show contrast material flowing superiorly and inferiorly in the epidural space. DSA fluoroscopy with live contrast injection, once again, confirmed no vascular or intrathecal uptake. At this point, using loss of resistance technique with saline and air, the epidural space was entered. Following negative aspiration, injection of approximately 1.5 cc of Isovue-200 with live fluoroscopy in the AP view confirmed epidural flow in the epidural space without vascular or intrathecal uptake observed. Subsequently, a test dose of 1 cc of 1% lidocaine solution was injected and patient was observed for two minutes without signs or symptoms of complications, including abdominal pain, shortness of breath, bilateral upper or lower extremity weakness, nausea and vomiting, prior to steroid injection. At this point, 3cc or 30mg of dexamethasone was then injected without incident. The patient tolerated the procedure well without signs or symptoms of c omplications prior to being transferred to the recovery area for further monitoring, The patient was then transferred to the recovery area where they were observed for an appropriate period of time after the injection. The patient reported a VAS score of 6 prior to the procedure and a post-procedure VAS of 0. POST OP INSTRUCTIONS The patient was provided a Pain Log to continue to record their response to the target-specific procedure prior to follow-up visit with the referring provider. Additionally, specific post-injection care instructions and a contact number to our office were provided if concerns arise regarding possible complications associated with the procedure are suspected.
== END 2023-04-07 10:25 | disposition home or self-care (01) ==
PROVIDERS: PCP Physician Assistant Medical; Referring Provider Physical Medicine & Rehabilitation; Visit Provider Physical Medicine & Rehabilitation
DX: M48.02 Spinal stenosis, cervical region (principal); M50.123 Cervical disc disorder at C6-C7 level with radiculopathy
CPT/HCPCS: 62321; 99152; J1100; J2250; J3490

== ENCOUNTER 2023-12-20 08:43 | Outpatient (CLI) | payer MEDICARE, OTHER, SELFPAY ==
[2023-12-20] VITALS (10 sets, daily range): BP systolic 119–154; BP diastolic 70–94; PULSE 79–94; RESP 14–39; TEMP 36.2; O2SAT 97–100
--- NOTE | 2023-12-20 09:15 | DI.RAD.S_ITS ---
PROCEDURE: PAIN C/T INTERLAMINAR INJECT INDICATIONS: SPINAL STENOSIS COMPARISON: [facility], , PAIN C/T INTERLAMINAR INJECT, 04/07/2023, 9:51. FINDINGS: Fluoroscopic spot filming was performed to verify placement of spinal needles at the C6-C7 level(s), as labeled on the films. Appropriate location(s) of the needle tip(s) was confirmed by injection of iodinated contrast. Partially seen thoracic catheter or overlying tubing. IMPRESSION: Procedural images for injection at C6-C7. Please see procedure note for full details. Dictated by: Theo Palacios M.D. on 12/20/2023 at 11:27 Approved by: Theo Palacios M.D. on 12/20/2023 at 11:28
[2023-12-20] MEDS: MIDAZOLAM 2 MG/2 ML VIAL IV (09:40)
[2023-12-20] MEDS: BUPIVACAINE 0.25% (PF) VIAL 2 ML INJ (09:43)
[2023-12-20] MEDS: iopamidoL 15 ML VIAL 3 ML INJ (09:43)
[2023-12-20] MEDS: DEXAMETHASONE 10 MG/ML VIAL 20 MG INJ (09:43)
[2023-12-20] MEDS: MIDAZOLAM 2 MG/2 ML VIAL 1 MG IV (09:47)
--- NOTE | 2023-12-20 10:07 | P.PCN_ITS ---
Date/Time/Diagnoses Date of procedure: 12/20/23 Time of procedure: 10:07 Pre-procedure diagnosis: 1. CERVICAL STENOSIS, 2. CERVICAL HNP WITH UPPER EXTREMITY RADICULAR FEATURES Post-procedure diagnosis: same Procedure Notes Procedure: 1. FLUORSCOPICALLY GUIDED CONTRAST CONTROLLED INTERLAMINAR EPIDURAL STEROID INJECTION - C6/7 TL NERY Indications: Shyrl is referred by Dr. Leal for treatment of Cervical HNP with Upper Extremity Paresthesias. Physician: Rigoberto Lott Total Fluoroscopy time (seconds): 41 Total sedation minutes: 23 Complications: none Procedure in detail & Post-procedure care: FINDINGS Cervical Stenosis due to disc deterioration and nerve root irritation and nerve root irritation DESCRIPTION OF PROCEDURE Fluoroscopically guided, contrast-controlled C6/7 translaminar epidural steroid injection with conscious sedation. Following review of allergy and review of potential side effects and complications, including, but not necessarily limited to, infection, allergic reaction, local tissue breakdown, temporary as well as permanent nerve injury, stroke, paralysis, and possible , the patient indicated that patient understood and agreed to proceed. An informed consent document was signed by the patient, witnessed by a nurse, and placed in the patient's chart. Additionally, other treatment options including modalities, medications, and physical therapy were reviewed with the patient. After review of previous anaesthesic history and IV conscious sedation the patient was deemed safe to proceed with today?s procedure with IV conscious se dation as ASA class II designation. Safety time-out was performed to confirm patient ID, procedure to be performed and site of procedure. IV sedation was accomplished with a combination of 3mg of Versed administered by the RN after DO order, titrated to patient comfort during the course of the procedure while the patient remained responsive to all verbal commands. In the prone position, following sterile prep and drape of the cervical region, the C6/7 translaminar space was identified fluoroscopically. The skin was anesthetized via a 25-gauge 1.5-inch needle with 1% lidocaine solution. At this point, a 25-gauge, 2.5-inch short bevel spinal needle was atraumatically introduced and advanced under fluoroscopic guidance into epidural space at the C6/7 translaminar space. Depth was confirmed on lateral view. Radiological data, including multiple fluoroscopic views of the cervical spine, reveal a spinal needle at the C6/7 translaminar space. Lateral views then show placement of the needle in the epidural space. Subsequent views show contrast material flowing superiorly and inferiorly in the epidural space. DSA fluoroscopy with live contrast injection, once again, confirmed no vascular or intrathecal uptake. At this point, using loss of resistance technique with saline and air, the epidural space was entered. Following negative aspiration, injection of approximately 1.5 cc of Isovue-200 with live fluoroscopy in the AP view confirmed epidural flow in the epidural space without vascular or intrathecal uptake observed. Subsequently, a test dose of 1 cc of 1% lidocaine solution was injected and patient was observed for two minutes without signs or symptoms of complications, including abdominal pain, shortness of breath, bilateral upper or lower extremity weakness, nausea and vomiting, prior to steroid injection. At this point, 2cc or 20mg of dexamethasone was then injected without incident. The patient tolerated the procedure well without signs or symptoms of c omplications prior to being transferred to the recovery area for further monitoring, The patient was then transferred to the recovery area where they were observed for an appropriate period of time after the injection. The patient reported a VAS score of 6 prior to the procedure and a post-procedure VAS of 0. POST OP INSTRUCTIONS The patient was provided a Pain Log to continue to record their response to the target-specific procedure prior to follow-up visit with the referring provider. Additionally, specific post-injection care instructions and a contact number to our office were provided if concerns arise regarding possible complications associated with the procedure are suspected.
== END 2023-12-20 10:26 | disposition home or self-care (01) ==
PROVIDERS: PCP Physician Assistant Medical; Referring Provider Physical Medicine & Rehabilitation; Visit Provider Physical Medicine & Rehabilitation
DX: M48.02 Spinal stenosis, cervical region (principal); M50.123 Cervical disc disorder at C6-C7 level with radiculopathy
CPT/HCPCS: 62321; 99152; 99153; J1100; J2250; J3490

== ENCOUNTER 2024-02-07 08:10 | Outpatient (CLI) | payer MEDICARE, OTHER, SELFPAY ==
[2024-02-07] VITALS (9 sets, daily range): BP systolic 130–162; BP diastolic 61–84; PULSE 68–81; RESP 12–18; TEMP 36.2; O2SAT 99–100
--- NOTE | 2024-02-07 08:45 | DI.RAD.S_ITS ---
PROCEDURE: PAIN L INTERLAMINAR/CAUDAL INJ INDICATIONS: POST LAMINECTOMY SYNDROME COMPARISON: [facility], , PAIN L INTERLAMINAR/CAUDAL INJ, 12/30/2022, 10:29. FINDINGS: Fluoroscopic spot filming was performed to verify placement of spinal needles at the caudal epidural level(s), as labeled on the films. Appropriate location(s) of the needle tip(s) was confirmed by injection of iodinated contrast. IMPRESSION: Intra procedural examination demonstrating appropriate positions of the needles. Dictated by: Darell Juárez M.D. on 02/07/2024 at 11:51 Approved by: Darell Juárez M.D. on 02/07/2024 at 11:51
[2024-02-07] MEDS: MIDAZOLAM 2 MG/2 ML VIAL IV (09:14)
[2024-02-07] MEDS: fentaNYL 100 MCG/2 ML INJ 50 MCG IV (09:14)
[2024-02-07] MEDS: LIDOCAINE 2% INJ MDV 20ML 5 ML INJ (09:18)
[2024-02-07] MEDS: DEXAMETHASONE 10 MG/ML VIAL INJ (09:19)
[2024-02-07] MEDS: iopamidoL 15 ML VIAL 3 ML INJ (09:19)
[2024-02-07] MEDS: methylPREDNISolone acetate 80 MG/ML VIAL INJ (09:19)
--- NOTE | 2024-02-07 09:30 | P.PCN_ITS ---
Date/Time/Diagnoses Date of procedure: 02/07/24 Time of procedure: 09:30 Pre-procedure diagnosis: 1. MULTILEVEL SPINAL STENOSIS 2. POST FUSION SYNDROME Post-procedure diagnosis: same Procedure Notes Procedure: 1. FLUOROSCOPICALLY GUIDED CONTRAST CONTROLLED CAUDAL EPIDURAL STEROID INJECTION, Indications: Elijah is referred by MING Leal for treatment of Multilevel Stenosis Physician: Rigoberto Lott Total Fluoroscopy time (seconds): 8 Total sedation minutes: 13 Complications: none Procedure in detail & Post-procedure care: FINDINGS Multilevel Stenosis S/p Lami/Fusion Syndrome DESCRIPTION OF PROCEDURE Fluoroscopically guided, contrast controlled caudal epidural steroid injection with Conscious Sedation Following review of allergy and review of potential side effects and complications, including but not necessarily limited to infection, allergic reaction, local tissue breakdown, temporary or permanent nerve injury, stroke, paralysis, and possible , the patient indicated that they understood and agreed to proceed. An informed consent document was signed by the patient, witnessed by a nurse, and placed in the patient's chart. Additionally, other treatment options including medications, modalities, and physical therapy were reviewed with the patient. After review of previous anaesthesic history and IV conscious sedation the patient was deemed safe to proceed with today?s procedure with IV conscious sedation as ASA class II designation. Safety time-out was performed to confirm patient ID, procedure to be performed and site of procedure. IV sedation was accomplished with a combination of 2mg of Versed and 50mcg of Fentanyl administered by the RN after DO order, titrated to patient comfort during the course of the procedure while the patient remained responsive to all verbal commands In the prone position, following sterile prep and drape of the lumbar region, the sacral hiatus was identified fluoroscopically. The skin was anesthetized via a 25-gauge, 1.5-inch needle with approximately 2cc of 1% lidocaine solution. At this point, a 25-gauge, 3inch needle was atraumatically introduced and advanced under fluoroscopic guidance to the corresponding sacral hiatus and entering the sacral canal. Following negative aspiration, injection of approximately 0.3cc of Isovue 300 confirmed interarticular placement without vascular uptake. Radiological data, including multiple fluoroscopic views of the lumbosacral spine, reveal a spinal needle in the sacral canal through the sacral hiatus. Subsequent views show flow of contrast material superiorly and inferiorly in the sacral canal without vascular or intrathecal uptake. At this point, a total of 5cc including 2cc or 80mg of depo medrol and 10 mg dexamethasone and 3cc of 1% lidocaine solution was injected without complication. The patient tolerated the procedure well without signs or symptoms of complications prior to transfer to the recovery area continued monitoring wit hout incident. The patient was then transferred to the recovery area where they were observed for an appropriate period of time after the injection. The patient reported a VAS score of 10 prior to the procedure and a post-procedure VAS of 2. POST OP INSTRUCTIONS The patient was provided a Pain Log to continue to record their response to the target-specific procedure prior to their follow-up visit with the referring physician. Additionally, specific post-injection care instructions and a contact number to our office were provided if concerns arise regarding possible c omplications associated with the procedure are suspected.
--- NOTE | 2024-02-07 10:24 | PC.NURSE ---
0945- patient reports numbness to her coccyx, denies any numbness to her legs, ambulates without pain or discomfort. MD would like to hold on to her for a few more minutes. 1005- patient steady on feet continues to have no numbness or weakness to BLE just slight numbness to coccyx area. MD seen patient and ok to d/c home.
== END 2024-02-07 10:05 | disposition home or self-care (01) ==
LOC: RAD 08:11
PROVIDERS: PCP Physician Assistant Medical; Referring Provider Physical Medicine & Rehabilitation; Visit Provider Physical Medicine & Rehabilitation
DX: M96.1 Postlaminectomy syndrome, not elsewhere classified (principal); M48.061 Spinal stenosis, lumbar region without neurogenic claudication
CPT/HCPCS: 62323; 99152; J1040; J1100; J2250; J3010

== ENCOUNTER 2024-03-15 08:44 | Outpatient (CLI) | payer MEDICARE, OTHER, SELFPAY ==
[2024-03-15] VITALS (11 sets, daily range): BP systolic 130–181; BP diastolic 76–102; PULSE 74–88; RESP 12–18; TEMP 36.2; O2SAT 98–100
--- NOTE | 2024-03-15 09:15 | DI.RAD.S_ITS ---
PROCEDURE: PAIN C/T FACET INJ/BLK 1ST L INDICATIONS: FACET ARTHROPATHY COMPARISON: [facility], , PAIN C/T FACET INJ/BLK 1ST L, 01/29/2021, 11:22. FINDINGS: Fluoroscopic spot filming was performed to verify placement of spinal needles at the right C3, C4, and C5 levels, as labeled on the films. Appropriate locations of the needle tips were confirmed by injection of iodinated contrast. IMPRESSION: Intraprocedural examination demonstrates appropriate needle positioning. Approved by: Devonte Jay M.D. on 03/15/2024 at 15:31
[2024-03-15] MEDS: MIDAZOLAM 2 MG/2 ML VIAL IV (09:40)
[2024-03-15] MEDS: iopamidoL 15 ML VIAL 3 ML INJ (09:49)
[2024-03-15] MEDS: DEXAMETHASONE 10 MG/ML VIAL 20 MG INJ (09:50)
[2024-03-15] MEDS: MIDAZOLAM 2 MG/2 ML VIAL 1 MG IV ×2 (09:50→09:55)
[2024-03-15] MEDS: BUPIVACAINE 0.25% (PF) VIAL 1 ML INJ (09:51)
--- NOTE | 2024-03-15 10:04 | P.PCN_ITS ---
Date/Time/Diagnoses Date of procedure: 03/15/24 Time of procedure: 10:04 Pre-procedure diagnosis: 1. FACET ARTHROPATHY 2. AXIAL NECK PAIN Post-procedure diagnosis: same Procedure Notes Procedure: 1. FLUOROSCOPICALLY GUIDED, CONTRAST-CONTROLLED RIGHT C3, C4, C5 MBB LA. Indications: Elijah is referred by MING Leal for treatment of Axial Neck Pain Physician: Rigoberto Lott Total Fluoroscopy time (seconds): 8 Total sedation minutes: 20 Complications: none Procedure in detail & Post-procedure care: DESCRIPTION OF PROCEDURE Fluoroscopically guided, contrast-controlled right C3, C4, C5 Diagnostic Medial Branch Blocks. Following review of allergy and review of potential side effects and complications, including, but not necessarily limited to, infection, allergic reaction, local tissue breakdown, stroke, temporary or permanent nerve injury and paralysis, the patient indicated that the patient understood and agreed to proceed. An informed consent document was signed by the patient, witnessed by a nurse, and placed in the patient's chart. Additionally, other treatment options including medications, modalities, and physical therapy were reviewed with the patient. After review of previous anaesthesic history and IV conscious sedation the patient was deemed safe to proceed with today?s procedure with IV conscious sedation as ASA class II designation. Safety time-out was performed to confirm patient ID, procedure to be performed and site of procedure. IV sedation was accomplished with a combination of 4mg of Versed was administered by the RN after DO order, titrated to patient comfort during the course of the procedure while the patient remained responsive to all verbal commands Time-out was taken to identify the correct patient, procedure and side prior to starting the procedure. Lying in the prone position, the patient was prepped and draped in the usual sterile fashion using Chlorhexaidine scrub and a fenestrated drape. The level was determined under fluoroscopy. The skin was anesthetized via a 25-gauge 1.5-inch needle with 1% lidocaine solution into the corresponding right C3, C4, C5 lateral pillars. At this point, a 22-gauge short bevel spinal needle was atraumatically introduced and advanced under fluoroscopic guidance to the anatomical pillars. Following negative aspiration, injections of approximately 0.1cc of Isovue 200 confirmed interarticular placement without vascular uptake. At this point, a total of 1cc of 0.5% was injected without complication into each of the corresponding medial branch anatomical location. The patient tolerated the procedure well without signs or symptoms of complications prior to transfer to the recovery area continued monitoring without incident. The patient was then transferred to the recovery area where they were observed for an appropriate period of time after the injection. The patient reported a VAS score of 7 prior to the procedure and a post- procedure VAS of 1. POST OP INSTRUCTIONS They were provided a Pain Log to continue to record their response to the target-specific procedure prior to their follow-up visit with their referring physician. Additionally, specific post-injection care instructions and a contact number to our office were provided if concerns arise regarding possible complications associated with the procedure are suspected.
== END 2024-03-15 10:28 | disposition home or self-care (01) ==
LOC: RAD 08:45
PROVIDERS: PCP Physician Assistant Medical; Referring Provider Physical Medicine & Rehabilitation; Visit Provider Physical Medicine & Rehabilitation
DX: M47.812 Spondylosis without myelopathy or radiculopathy, cervical region (principal)
CPT/HCPCS: 64490; 64491; 99152; J1100; J2250; J3490

== ENCOUNTER 2024-06-05 13:08 | Outpatient (CLI) | payer MEDICARE, OTHER, SELFPAY ==
[2024-06-05] VITALS (11 sets, daily range): BP systolic 136–171; BP diastolic 68–89; PULSE 74–84; RESP 12–24; TEMP 36.4; O2SAT 96–100
--- NOTE | 2024-06-05 13:45 | DI.RAD.S_ITS ---
PROCEDURE: PAIN SI JOINT INJECTION JAVIER INDICATIONS: Bilateral sacroiliac joint injection COMPARISON: None. FINDINGS: Fluoroscopic spot filming was performed to verify placement of spinal needles at the bilateral sacroiliac joints level(s), as labeled on the films. Appropriate location(s) of the needle tip(s) was confirmed by injection of iodinated contrast. IMPRESSION: Contrast a needle placement overlying labeled bilateral sacroiliac joints. Dictated by: Priscila Campbell M.D. on 06/05/2024 at 22:36 Approved by: Priscila Campbell M.D. on 06/05/2024 at 22:37
[2024-06-05] MEDS: MIDAZOLAM 2 MG/2 ML VIAL IV (13:53)
[2024-06-05] MEDS: BUPIVACAINE 0.5% (PF) 10 ML VIAL 5 ML INJ (13:59)
[2024-06-05] MEDS: iopamidoL 15 ML VIAL 3 ML INJ (13:59)
[2024-06-05] MEDS: BETAMETHASONE 30 MG/5 ML MDV 12 MG INJ (13:59)
[2024-06-05] MEDS: MIDAZOLAM 2 MG/2 ML VIAL 1 MG IV (14:05)
--- NOTE | 2024-06-05 14:18 | PM.PROC.IR.1 ---
Date/Time/Diagnoses Date of procedure: 06/05/24 Time of procedure: 14:19 Pre-procedure diagnosis: Sacroiliac joint pain/DJD Post-procedure diagnosis: same Procedure Notes Procedure: Fluoroscopic guided contrast controlled bilateral sacroiliac joint injection Indications: Elijah is referred for treatment of bilateral sacroiliac joint DJD Physician: Rigoberto Lott Total Fluoroscopy time (seconds): 21 Total sedation minutes: 21 Complications: none Procedure in detail & Post-procedure care: Description of procedure Fluoroscopic guided, contrast controlled bilateral sacroiliac joint injection Following review of allergies and review of potential side effects and complications, including, but not necessarily limited to, infection, allergic reaction, local tissue breakdown, temporary as well as permanent nerve injury, paralysis, stroke and possible , the patient indicated that they understood and agreed to proceed. An informed consent was signed by the patient, witnessed by a nurse, and placed in the patient's chart. Additionally, other treatment options including modalities, medications, and physical therapy were reviewed with the patient. After review of previous anaesthesic history and IV conscious sedation the patient was deemed safe to proceed with today?s procedure with IV conscious sedation as ASA class II designation. Safety time-out was performed to confirm patient ID, procedure to be performed and site of procedure. IV sedation was accomplished with a combination of 3mg Versed were administered by the RN after DO order, titrated to patient comfort during the course of the procedure while the patient remained responsive to all verbal commands In the prone position following sterile prep and drape of the pelvic region, the hyper lucency on in the inferior aspect of the sacroiliac joint was identified fluoroscopically the skin was anesthetized be a 25 gauge 1.5 inch needle with approximately 2cc of 1% lidocaine solution. At this point, a 22 gauge 3 in spinal needle was atraumatically introduced and advanced under fluoroscopic guidance into the inferior aspect of the right sacroiliac joint. Following negative aspiration, approximately 0.3cc of Isovue-300 was injected confirming intra-articular placement without vascular uptake. Radiographic data, including multiple fluoroscopic views of the pelvis, reveals a spinal needle in the sacroiliac joint hyper lucent zone. Subsequent view show flow contrast tear superiorly and inferiorly within the joint capsule without vascular intrathecal uptake. At this point a total of 1cc of 0.5% Marcaine was combined with 1cc of 6mg of betamethasone was injected without incident. Attention was then refocused the left sacroiliac joint where the procedure was replicated. The procedure tolerated the procedure well without signs or symptoms of complications prior to transfer to the recovery area continued monitoring without incident. The patient was then transferred to the recovery area with a bur observed for an appropriate time after the injection. The patient reverted a vas score of 7 prior to the procedure and post-procedure vas of 1. Postop instructions The patient was provided with a pain like to continue to record the patient's response to the target specific procedure prior to the patient's follow-up visit with the referring physician. Additionally, specific post injection care instructions and a contact number to our office were provided if concerns arise regarding the possible complications associated with procedure are suspected.
== END 2024-06-05 14:40 | disposition home or self-care (01) ==
LOC: RAD 13:08
PROVIDERS: Referring Provider Physical Medicine & Rehabilitation; Visit Provider Physical Medicine & Rehabilitation
DX: M53.3 Sacrococcygeal disorders, not elsewhere classified (principal); M46.1 Sacroiliitis, not elsewhere classified
CPT/HCPCS: 27096; 77002; 99152; J0702; J2250

== ENCOUNTER 2024-09-18 08:57 | Outpatient (CLI) | payer MEDICARE, OTHER, SELFPAY ==
[2024-09-18] VITALS (9 sets, daily range): BP systolic 130–163; BP diastolic 59–96; PULSE 71–79; RESP 12–18; TEMP 36.3; O2SAT 98–100
--- NOTE | 2024-09-18 09:45 | DI.RAD.S_ITS ---
PROCEDURE: PAIN C/T INTERLAMINAR INJECT INDICATIONS: C 6/7 TL NERY COMPARISON: [facility], , PAIN C/T INTERLAMINAR INJECT, 12/20/2023, 10:44. FINDINGS: Fluoroscopic spot filming was performed to verify placement of spinal needles at the C6-7 level(s), as labeled on the films. Appropriate location(s) of the needle tip(s) was confirmed by injection of iodinated contrast. IMPRESSION: C6-7 needle and contrast localization. Dictated by: Priscila Campbell M.D. on 09/18/2024 at 13:16 Approved by: Priscila Campbell M.D. on 09/18/2024 at 13:17
[2024-09-18] MEDS: MIDAZOLAM 2 MG/2 ML VIAL IV (10:56)
[2024-09-18] MEDS: BUPIVACAINE 0.25% (PF) VIAL 2 ML INJ (11:00)
[2024-09-18] MEDS: iopamidoL 15 ML VIAL 3 ML INJ (11:00)
[2024-09-18] MEDS: DEXAMETHASONE 10 MG/ML VIAL 20 MG INJ (11:00)
--- NOTE | 2024-09-18 11:17 | P.PCN_ITS ---
Date/Time/Diagnoses Date of procedure: 09/18/24 Time of procedure: 11:17 Pre-procedure diagnosis: 1. CERVICAL STENOSIS, 2. CERVICAL HNP WITH UPPER EXTREMITY RADICULAR FEATURES Post-procedure diagnosis: same Procedure Notes Procedure: 1. FLUORSCOPICALLY GUIDED CONTRAST CONTROLLED INTERLAMINAR EPIDURAL STEROID INJECTION - C6/7 TL NERY Indications: Shyrl is referred by ANDI Leal for treatment of Cervical HNP with Upper Extremity Paresthesias. Physician: Rigoberto Lott Total Fluoroscopy time (seconds): 28 Total sedation minutes: 14 Complications: none Procedure in detail & Post-procedure care: FINDINGS Cervical Stenosis due to disc deterioration and nerve root irritation and nerve root irritation DESCRIPTION OF PROCEDURE Fluoroscopically guided, contrast-controlled C6/7 translaminar epidural steroid injection with conscious sedation. Following review of allergy and review of potential side effects and complications, including, but not necessarily limited to, infection, allergic reaction, local tissue breakdown, temporary as well as permanent nerve injury, stroke, paralysis, and possible , the patient indicated that patient understood and agreed to proceed. An informed consent document was signed by the patient, witnessed by a nurse, and placed in the patient's chart. Additionally, other treatment options including modalities, medications, and physical therapy were reviewed with the patient. After review of previous anaesthesic history and IV conscious sedation the patient was deemed safe to proceed with today?s procedure with IV conscious sed ation as ASA class II designation. Safety time-out was performed to confirm patient ID, procedure to be performed and site of procedure. IV sedation was accomplished with a combination of 2mg of Versed administered by the RN after DO order, titrated to patient comfort during the course of the procedure while the patient remained responsive to all verbal commands. In the prone position, following sterile prep and drape of the cervical region, the C6/7 translaminar space was identified fluoroscopically. The skin was anesthetized via a 25-gauge 1.5-inch needle with 1% lidocaine solution. At this point, a 25-gauge, 2.5-inch short bevel spinal needle was atraumatically introduced and advanced under fluoroscopic guidance into epidural space at the C6/7 translaminar space. Depth was confirmed on lateral view. Radiological data, including multiple fluoroscopic views of the cervical spine, reveal a spinal needle at the C6/7 translaminar space. Lateral views then show placement of the needle in the epidural space. Subsequent views show contrast material flowing superiorly and inferiorly in the epidural space. DSA fluoroscopy with live contrast injection, once again, confirmed no vascular or intrathecal uptake. At this point, using loss of resistance technique with saline and air, the epidural space was entered. Following negative aspiration, injection of approximately 1.5 cc of Isovue-200 with live fluoroscopy in the AP view confirmed epidural flow in the epidural space without vascular or intrathecal uptake observed. Subsequently, a test dose of 1 cc of 1% lidocaine solution was injected and patient was observed for two minutes without signs or symptoms of complications, including abdominal pain, shortness of breath, bilateral upper or lower extremity weakness, nausea and vomiting, prior to steroid injection. At this point, 2cc or 20mg of dexamethasone was then injected without incident. The patient tolerated the procedure well without signs or symptoms of co mplications prior to being transferred to the recovery area for further monitoring, The patient was then transferred to the recovery area where they were observed for an appropriate period of time after the injection. The patient reported a VAS score of 6 prior to the procedure and a post-procedure VAS of 0. POST OP INSTRUCTIONS The patient was provided a Pain Log to continue to record their response to the target-specific procedure prior to follow-up visit with the referring provider. Additionally, specific post-injection care instructions and a contact number to our office were provided if concerns arise regarding possible complications associated with the procedure are suspected.
== END 2024-09-18 11:46 | disposition home or self-care (01) ==
LOC: RAD 08:58
PROVIDERS: PCP Physician Assistant; Referring Provider Physical Medicine & Rehabilitation; Visit Provider Physical Medicine & Rehabilitation
DX: M48.02 Spinal stenosis, cervical region (principal); M50.123 Cervical disc disorder at C6-C7 level with radiculopathy
CPT/HCPCS: 62321; 99152; J1100; J2250; J3490

== ENCOUNTER 2024-11-15 13:26 | Outpatient (CLI) | payer MEDICARE, OTHER, SELFPAY ==
[2024-11-15] VITALS (10 sets, daily range): BP systolic 131–169; BP diastolic 74–87; PULSE 73–93; RESP 13–20; TEMP 36.8; O2SAT 97–100
--- NOTE | 2024-11-15 13:29 | DI.RAD.S_ITS ---
PROCEDURE: PAIN L/S TRANSFORAMINAL INJECT INDICATIONS: Right L4/5 TFESI COMPARISON: None. FINDINGS/IMPRESSION: Fluoroscopic spot filming was performed to verify placement of spinal needles at the right L4-L5 level(s), as labeled on the films. Appropriate location(s) of the needle tip(s) was confirmed by injection of iodinated contrast. Dictated by: Cecilio Schultz M.D. on 11/16/2024 at 21:20 Approved by: Cecilio Schultz M.D. on 11/16/2024 at 21:20
[2024-11-15] MEDS: MIDAZOLAM 2 MG/2 ML VIAL IV (14:41)
[2024-11-15] MEDS: BUPIVACAINE 0.25% (PF) VIAL 2 ML INJ (14:44)
[2024-11-15] MEDS: BETAMETHASONE 30 MG/5 ML MDV 12 MG INJ (14:44)
[2024-11-15] MEDS: iopamidoL 15 ML VIAL 3 ML INJ (14:44)
[2024-11-15] MEDS: DEXAMETHASONE 10 MG/ML VIAL INJ (14:44)
[2024-11-15] MEDS: MIDAZOLAM 2 MG/2 ML VIAL 1 MG IV (14:49)
--- NOTE | 2024-11-15 15:00 | P.PCN_ITS ---
Date/Time/Diagnoses Date of procedure: 11/15/24 Time of procedure: 15:00 Pre-procedure diagnosis: 1. FORAMINAL STENOSIS WITH LE SYMPTOMS Post-procedure diagnosis: same Procedure Notes Procedure: 1. FLUOROSCOPICALLY GUIDED CONTRAST CONTROLLED TRANSFORAMINAL EPIDURAL STEROID INJECTION - LEFT L4/5 Indications: Shyrl is referred by Dr. Leal for treatment of Foraminal Stenosis with Left LE Symptoms Physician: Rigoberto Lott Total Fluoroscopy time (seconds): 11 Total sedation minutes: 14 Complications: none Procedure in detail & Post-procedure care: FINDINGS Foraminal Nerve Root Compression secondary to disc disease and facet hypertrophy DESCRIPTION OF PROCEDURE Following review of allergy and review of potential side effects and complications, including, but not necessarily limited to, infection, allergic reaction, local tissue breakdown, stroke, temporary or permanent nerve injury, paralysis, and possible , the patient indicated that the patient understood and agreed to proceed. An informed consent document was signed by the patient, witnessed by a nurse, and placed in the patient's chart. Additionally, other treatment options including medications, modalities, and physical therapy were reviewed with the patient. After review of previous anaesthesic history and IV conscious sedation the patient was deemed safe to proceed with today?s procedure with IV conscious sedation as ASA class II designation. Safety time-out was performed to confirm patient ID, procedure to be performed and site of procedure. IV sedation was accomplished with a combination of 3mg of Versed administered by the RN after DO order, titrated to patient comfort during the course of the procedure while the patient remained responsive to all verbal commands In the prone position following sterile prep and drape of the lumbar region, the left L4/5 posterior neuroforamen was identified fluoroscopically. The skin was anesthetized via a 25-gauge 1.5-inch needle with 1% lidocaine solution. At this point, a 25-gauge 3.5-inch spinal needle was atraumatically introduced and advanced under fluoroscopic guidance through the posterior left L4/5 neuroforamen to approximately the anterior aspect of the canal. Depth was confirmed on lateral view. Following negative aspiration, injection of approximately 1.5 cc of Isovue 200 under live fluoroscopy in the AP view confirmed excellent flow along the nerve root, into the epidural space without vascular or intrathecal uptake observed Radiological data, including multiple fluoroscopic views of the lumbosacral spine, reveal a spinal needle at the left L4/5 posterior neuroforamen. Subsequent views show flow of contrast material flowing superiorly and inferiorly along the nerve root confirming epidural flow. Subsequently, a test dose of 1.5 cc of 1% lidocaine solution was administered and patient was observed for two minutes for signs or symptoms of complications, including abdominal pain, shortness of breath, bilateral upper or lower extremity weakness, nausea and vomiting, prior to steroid injection. At this point, a total of 2cc or 10mg of dexamethasone and 6mg of betamethasone was injected without incident. The procedure tolerated the procedure well without signs or symptoms of complications prior to transfer to the recovery area continued monitoring without incident. The patient was then transferred to the recovery area where they were observed for an appropriate time after the injection. The patient reported a VAS score of 7 prior to the procedure and a post- procedure VAS of 1. POST OP INSTRUCTIONS The patient was provided a Pain Log to continue to record their response to the target-specific procedure prior to follow-up visit with their referring physicia n. Additionally, specific post-injection care instructions and a contact number to our office were provided if concerns arise regarding possible complications associated with the procedure are suspected.
== END 2024-11-15 15:25 | disposition home or self-care (01) ==
PROVIDERS: PCP Physician Assistant; Referring Provider Physical Medicine & Rehabilitation; Visit Provider Physical Medicine & Rehabilitation
DX: M48.061 Spinal stenosis, lumbar region without neurogenic claudication (principal); M51.16 Intervertebral disc disorders with radiculopathy, lumbar region; M47.26 Other spondylosis with radiculopathy, lumbar region
CPT/HCPCS: 64483; 99152; J0702; J1100; J2250; J3490

== ENCOUNTER → 2024-12-10 13:42 | Outpatient (CLI) | payer MEDICARE, OTHER, SELFPAY ==
--- NOTE | 2024-12-10 | PATH_ITS ---
Note [facility] Accession Number: [id number] TESTS RESULT FLAG UNITS REF RANGE LAB Clinician Provided Cytology Information No. of containers..01 Other (Miscellaneous) No. of containers..04 Previously Prepared Cytology Slide Source: RIGHT THYROID NODULE DIAGNOSIS: RIGHT THYROID NODULE, FINE NEEDLE ASPIRATION. BENIGN. ADEQUATE FOR EVALUATION. COLLOID AND FEW FOLLICULAR GROUPS ARE PRESENT. FAVOR BENIGN FOLLICULAR (GOITEROUS) NODULE (BETHESDA CATEGORY II), SEE COMMENT. COMMENT: MICROSCOPIC EXAMINATION REVEALS A MILDLY CELLULAR ASPIRATE, COMPOSED OF COLLOID, FEW FOLLICULAR GROUPS WITHOUT SIGNIFICANT CYTOLOGIC OR ARCHITECTURAL ATYPIA, AND BACKGROUND MACROPHAGES. THESE FINDINGS FAVOR A BENIGN FOLLICULAR (GOITEROUS) NODULE. CORRELATION WITH CLINICAL AND RADIOGRAPHIC FINDINGS IS RECOMMENDED. ACCORDING TO THE [place] REPORTING SYSTEM FOR THYROID CYTOPATHOLOGY, THE RISK OF MALIGNANCY IN THE CATEGORY BENIGN-CATEGORY II IS 0-3%; THEREFORE RECOMMEND CONTINUED ULTRASOUND SURVEILLANCE WITH REPEAT FNA IF THE NODULE SIGNIFICANTLY INCREASES IN SIZE. Pathologist ICD10: 01 E04.2 Signed out by: Bernardo Fontana MD, Pathologist NPI- [id number] Performed by: Jesus Arauz, Credit And Loan Collections Supervisor ([facility]) Gross description: 01 30 CC, RED, CLOUDY RECIEVED: IN CYTOLYT WITH 7 ALCOHOL FIXED AND 7 QUICK STAINED SLIDES ALSO 1 RNA VIAL WILL ON 08-17-2025.VO /VDU 12/11/2024 0616 Local FLAG LEGEND: L-Low Normal,H-High Normal,LL-Alert Low,HH-Alert High <-Panic Low,>-Panic High,A-Abnormal,AA-Critical Abnormal Performed at: 01 [address], [place] [address] Deniz Neal MD, Performed at: [address] [address], [place], [place] [id number] MD Deniz Neal MD Phone: [phone]
--- NOTE | 2024-12-10 | PATH_ITS ---
Note [facility] Accession Number: [id number] TESTS RESULT FLAG UNITS REF RANGE LAB Clinician Provided Cytology Information No. of containers..01 Other (Miscellaneous) No. of containers..02 Previously Prepared Cytology Slide Source: LEFT THYROID NODULE DIAGNOSIS: LEFT THYROID NODULE, FINE NEEDLE ASPIRATION. BENIGN. ADEQUATE FOR EVALUATION. COLLOID AND FEW FOLLICULAR GROUPS PRESENT. FAVOR BENIGN FOLLICULAR (GOITEROUS) NODULE (BETHESDA CATEGORY II), SEE COMMENT. COMMENT: MICROSCOPIC EXAMINATION REVEALS A MILDLY CELLULAR ASPIRATE, COMPOSED OF COLLOID, FEW FOLLICULAR GROUPS (MORE THAN SIX GROUPS THAT ARE REQUIRED FOR ADEQUACY) WITHOUT SIGNIFICANT CYTOLOGIC OR ARCHITECTURAL ATYPIA, AND BACKGROUND MACROPHAGES. THESE FINDINGS FAVOR A BENIGN FOLLICULAR (GOITEROUS) NODULE. CORRELATION WITH CLINICAL AND RADIOGRAPHIC FINDINGS IS RECOMMENDED TO ENSURE THAT THE NODULE HAS BEEN ADEQUATELY SAMPLED. ACCORDING TO THE [place] REPORTING SYSTEM FOR THYROID CYTOPATHOLOGY, THE RISK OF MALIGNANCY IN THE CATEGORY BENIGN-CATEGORY II IS 0-3%; THEREFORE RECOMMEND CONTINUED ULTRASOUND SURVEILLANCE WITH REPEAT FNA IF THE NODULE SIGNIFICANTLY INCREASES IN SIZE. Pathologist ICD10: 01 E04.2 Signed out by: Amara Fontana MD, Pathologist NPI- [id number] Performed by: Aamra Ascencio, [employer]mer ([facility]) Gross description: 01 30 CC, RED, CLEAR RECIEVED: IN CYTOLYT WITH 6 ALCOHOL FIXED AND 6 QUICK STAINED SLIDES ALSO 1 RNA VIAL WILL ON 08-17-2025.VO /VDU 12/11/2024 0617 [facility] FLAG LEGEND: L-Low Normal,H-High Normal,LL-Alert Low,HH-Alert High <-Panic Low,>-Panic High,A-Abnormal,AA-Critical Abnormal Performed at: 01 =[address] [address], [place] [address] Deniz Neal MD, Performed at: [address] [address], [place], [place] [id number] MD Deniz Neal MD Phone: [phone]
--- NOTE | 2024-12-10 13:44 | DI.US.S_ITS ---
PROCEDURE: US FINE NEEDLE ASPIRATION INDICATIONS: THYROID NODULE TECHNIQUE: The indications, alternatives, benefits, risks, and complications of the procedure were explained to the patient. Written informed consent was obtained and placed in the chart. The area of interest was examined sonographically and a site was chosen for ultrasound guided percutaneous sampling. The skin was prepared and draped in the usual fashion, and anesthetized with 1% lidocaine infiltrated from the skin down to the lesion. Multiple passes were then performed, with contents emptied into an appropriate pathology specimen container. A bandage was applied to the area of access at completion of the study. COMPARISON: None. FINDINGS: Location(s) of lesion(s) sampled: Inferior left and right lobes [place]: 25 gauge hypodermic needles. Number of passes: 7 on the right and 6 on the left. Medications: 1% lidocaine for local anaesthesia. Complications: None. IMPRESSION: Ultrasound-guided bilateral inferior pole nodule fine needle aspiration, with cytology results pending. Dictated by: Deniz Schumacher M.D. on 12/10/2024 at 17:13 Approved by: Deniz Schumacher M.D. on 12/10/2024 at 17:14
== END ==
LOC: US 13:43
PROVIDERS: PCP Physician Assistant; Referring Provider Radiology Neuroradiology; Visit Provider Radiology Neuroradiology
DX: E04.2 Nontoxic multinodular goiter (principal)
CPT/HCPCS: 10005; 10006

== ENCOUNTER → 2025-04-29 10:13 | Outpatient (CLI) | payer MEDICARE, OTHER, SELFPAY ==
--- NOTE | 2025-04-29 10:14 | DI.CT.S_ITS ---
PROCEDURE: CT LUMBAR SPINE WO CON INDICATIONS: LUMB RADIC,SI JT DYSFUNCT,CSPINE STENOSIS,S/P FUSE TECHNIQUE: Noncontrast 3 mm thick sections acquired from the T12 level to the sacrum. Sagittal and coronal reformats were constructed. For radiation dose reduction, the following was used: automated exposure control. COMPARISON: [facility], MR, MR LUMBAR SPINE WO CON, 12/22/2022, 15:46. FINDINGS: Image quality: Excellent. Bones: Minimal levocurvature. Multilevel degenerative changes with disc height loss, degenerative endplate changes, osteophytosis and facet arthropathy. Severe disc height loss at L2-L3. No significant central canal stenosis. Multilevel neural foraminal stenosis, moderate to severe on the right at L2-L3. Moderate on the left at L2-L3, L3-L4 and L4-5. More mild neural foraminal stenosis elsewhere. No acute vertebral body compression fractures. No suspicious lytic or blastic bony lesions. No pars defects. Transitional vertebral body anatomy with lumbarization of the S1 vertebral body. The 1st non rib-bearing vertebral bodies designated as L1. Soft tissues: No retroperitoneal masses or hematomas. Visualized aorta is normal in caliber. Atherosclerotic vascular calcifications. Diverticulosis within the visualized colon without evidence of acute diverticulitis. IMPRESSION: Multilevel degenerative changes of the lumbar spine as described above. No acute osseous abnormalities. Dictated by: Darell Juárez M.D. on 04/29/2025 at 14:07 Approved by: Darell Juárez M.D. on 04/29/2025 at 14:13
== END ==
PROVIDERS: PCP Physician Assistant; Referring Provider Neurological Surgery; Visit Provider Neurological Surgery
DX: M54.16 Radiculopathy, lumbar region (principal); M53.3 Sacrococcygeal disorders, not elsewhere classified; M48.02 Spinal stenosis, cervical region; M43.16 Spondylolisthesis, lumbar region; M51.362 Other intervertebral disc degeneration, lumbar region with discogenic back pain and lower extremity pain; M48.061 Spinal stenosis, lumbar region without neurogenic claudication; M89.8X8 Other specified disorders of bone, other site; M25.78 Osteophyte, vertebrae; M47.816 Spondylosis without myelopathy or radiculopathy, lumbar region; M54.81 Occipital neuralgia; M96.1 Postlaminectomy syndrome, not elsewhere classified; R45.89 Other symptoms and signs involving emotional state; M47.22 Other spondylosis with radiculopathy, cervical region; M50.10 Cervical disc disorder with radiculopathy, unspecified cervical region; Z98.1 Arthrodesis status
CPT/HCPCS: 72131; 99214

== ENCOUNTER 2025-05-02 13:27 | Outpatient (CLI) | payer MEDICARE, OTHER, SELFPAY ==
[2025-05-02] VITALS (8 sets, daily range): BP systolic 148–184; BP diastolic 73–87; PULSE 73–84; RESP 14–46; TEMP 36.4; O2SAT 94–100
[2025-05-02] MEDS: MIDAZOLAM 2 MG/2 ML VIAL IV (14:49)
[2025-05-02] MEDS: methylPREDNISolone acet DEPO 40 MG/ML VIAL INJ (14:56)
[2025-05-02] MEDS: iopamidoL 15 ML VIAL 3 ML INJ (14:57)
[2025-05-02] MEDS: BETAMETHASONE 30 MG/5 ML MDV 12 MG INJ (14:57)
[2025-05-02] MEDS: BUPIVACAINE 0.25% (PF) VIAL 2 ML INJ (14:57)
[2025-05-02] MEDS: DEXAMETHASONE 10 MG/ML VIAL INJ (14:58)
--- NOTE | 2025-05-02 15:12 | PM.PROC.IR.1 ---
Date/Time/Diagnoses Date of procedure: 05/02/25 Time of procedure: 15:12 Pre-procedure diagnosis: 1. MULTILEVEL SPINAL STENOSIS 2. POST FUSION SYNDROME Post-procedure diagnosis: same Procedure Notes Procedure: 1. FLUOROSCOPICALLY GUIDED CONTRAST CONTROLLED CAUDAL EPIDURAL STEROID INJECTION, Indications: Elijah is referred by MING Leal for treatment of Multilevel Stenosis Physician: Rigoberto Lott Total Fluoroscopy time (seconds): 20 Total sedation minutes: 16 Complications: none Procedure in detail & Post-procedure care: FINDINGS Multilevel Stenosis S/p Lami/Fusion Syndrome DESCRIPTION OF PROCEDURE Fluoroscopically guided, contrast controlled caudal epidural steroid injection with Conscious Sedation Following review of allergy and review of potential side effects and complications, including but not necessarily limited to infection, allergic reaction, local tissue breakdown, temporary or permanent nerve injury, stroke, paralysis, and possible , the patient indicated that they understood and agreed to proceed. An informed consent document was signed by the patient, witnessed by a nurse, and placed in the patient's chart. Additionally, other treatment options including medications, modalities, and physical therapy were reviewed with the patient. After review of previous anaesthesic history and IV conscious sedation the patient was deemed safe to proceed with today?s procedure with IV conscious sedation as ASA class II designation. Safety time-out was performed to confirm patient ID, procedure to be performed and site of procedure. IV sedation was accomplished with a combination of 2mg of Versed administered by the RN after DO order, titrated to patient comfort during the course of the procedure while the patient remained responsive to all verbal commands In the prone position, following sterile prep and drape of the lumbar region, the sacral hiatus was identified fluoroscopically. The skin was anesthetized via a 25-gauge, 1.5-inch needle with approximately 2cc of 1% lidocaine solution. At this point, a 25-gauge, 3inch needle was atraumatically introduced and advanced under fluoroscopic guidance to the corresponding sacral hiatus and entering the sacral canal. Following negative aspiration, injection of approximately 0.3cc of Isovue 300 confirmed interarticular placement without vascular uptake. Radiological data, including multiple fluoroscopic views of the lumbosacral spine, reveal a spinal needle in the sacral canal through the sacral hiatus. Subsequent views show flow of contrast material superiorly and inferiorly in the sacral canal without vascular or intrathecal uptake. At this point, a total of 6cc including 4cc including 40mg depo medrol, 10mg dexamethasone and 12mg of betamethasone and 2cc of 0.25% bupivicaine solution was injected without complication. The patient tolerated the procedure well without signs or symptoms of complications prior to transfer to the recovery area continued monitoring without incident. The patient was then transferred to the recovery area where they were observed for an appropriate period of time after the injection. The patient reported a VAS score of 10 prior to the procedure and a post-procedure VAS of 2. POST OP INSTRUCTIONS The patient was provided a Pain Log to continue to record their response to the target-specific procedure prior to their follow-up visit with the referring physician. Additionally, specific post-injection care instructions and a contact number to our office were provided if concerns arise regarding possible complications associated with the procedure are suspected.
== END 2025-05-02 15:25 | disposition home or self-care (01) ==
PROVIDERS: PCP Physician Assistant; Referring Provider Physical Medicine & Rehabilitation; Visit Provider Physical Medicine & Rehabilitation
DX: M96.1 Postlaminectomy syndrome, not elsewhere classified (principal); M53.3 Sacrococcygeal disorders, not elsewhere classified
CPT/HCPCS: 62323; 99152; J0702; J1010; J1100; J2250